=== PATIENT | female | born 1955 | race Caucasian/White ===

== ENCOUNTER 2023-11-27 21:40 | Inpatient (IN) | payer BC, SELFPAY ==
[2023-11-27] VITALS (34 sets, daily range): BP systolic 68–140; BP diastolic 35–97; BMI 31.9
[2023-11-27 19:13] LABS: % Basophils 0.2 % (0-2); % Immature Granulocytes 0.3 % (0-0.5); % Lymphocytes 2.6 % (20.5-51.1); % Monocytes 7.6 % (1.7-9.3); % Neutrophils 89.3 % (42.2-75.2); Absolute Immature Granulocytes 0.1 10^3/uL (0-0.05); Absolute Lymphocytes 0.5 10^3/uL (1.2-3.4); Absolute Monocytes 1.6 10^3/uL (0.1-0.6); Absolute Neutrophils 18.2 10^3/uL (1.4-6.5); Hematocrit 30.2 % (37.0-47.0); Hemoglobin 10.1 g/dL (12.0-16.0); Mean Corp Hgb Conc. 33.4 g/dL (33.0-37.0); Mean Corpuscular Hgb 31.3 pg (27.0-31.0); Mean Corpuscular Volume 93.5 fL (81.0-99.0); Mean Platelet Volume 10.1 fL (7.4-10.4); Nucleated Red Blood Cells % 0 %; Platelet Count 353 10^3/uL (130-400); Red Blood Cell Count 3.23 10^6/uL (4.20-5.40); Red Cell Dist. Width 12.8 % (11.5-14.5); White Blood Cell Count 20.4 10^3/uL (4.8-10.8)
--- NOTE | 2023-11-27 19:23 | ED.GENMED ---
History of Present Illness
General
Chief Complaint: Blood Pressure Problem
Source: patient and spouse
Time Seen by Provider: 11/27/23 19:03
History of Present Illness
History of Present Illness:
68-year-old female presents to the emergency room from [facility] where she underwent plastic surgery including liposuction, breast lift. Patient reportedly had 4 L of adipose tissue removed by liposuction. She received 4 L of
fluid per their routine one-to-one replacement protocol. Patient also received an additional liter normal saline. She remained hypotensive in recovery. Also noted to be hypothermic. Therefore transferred here to the hospital for further
resuscitation. Patient complaining of pain in the areas of surgery she also feels generally weak and shaky. She denies any chest pain, nausea, shortness of breath. surgery performed by Dr. Banegas
Phy Exam
Physical Exam
Physical Exam:
General: Awake, Alert, Oriented X3. Appears uncomfortable, pale somewhat jittery
Vitals: Hypotensive and hypothermic on arrival
Head: Atraumatic
Eyes: Pupils equal, EOMI
Throat: Airway intact, no exudates
Neck: Trachea midline
Chest: Compression dressing in the form of Bryant bandages noted on chest
Lungs: Clear and equal b/l
Heart: Regular rate, no murmurs
Abd: Compression dressing noted on abdomen. There are 2 surgical drains noted with serosanguineous fluid
Neuro: Nonfocal
Skin: Warm, dry, no rash
Extremities: pulses equal b/l, no edema
Course
Orders/Labs/Results
Orders:
Orders
11/27/23 Breakfast
Regular
At Your Request: Full Participation
11/27/23 19:05
CBC/With Diff [Complete Blood Count/With Diff] Urgent
Comprehensive Metabolic Panel Urgent
Direct Bilirubin Urgent
11/27/23 19:17
Lactated Ringers [Lr] 1,000 ml IV BOLUS
11/27/23 19:25
HYDROmorphone [Dilaudid] 0.5 mg IV NOW STA
11/27/23 19:40
Type+Screen Urgent
Ionized Calcium Urgent
11/27/23 20:12
PTT Urgent
Prothrombin Time Urgent
Is patient on Coumadin/Warfarin?: Unknown
11/27/23 20:19
Lactated Ringers [Lr] 1,000 ml IV BOLUS
11/27/23 20:27
NORepinephrine 4 MG/250 ML [Levophed] 4 mg in 250 ml IV NOW
Initial dose in mcg/min, then titrate:: 2
Titrate to keep:: MAP > 65 mmHg
Titrate by mcg/min:: 1-2 mcg/min
Frequency of titrations (minutes):: 5
Maximum dose in ICU in mcg/min:: 30
Maximum dose in IMU in mcg/min:: 8
Maximum dose in IVU in mcg/min:: 4
Begin to taper infusion when:: Remained at goal for 4hrs
Taper by mcg/min:: 1-2 mcg/min
Frequency of taper (minutes) if patient maintains goal:: 30
Taper to off?: Yes
If infusion off & no longer maintaining goal:: Contact Provider
11/27/23 20:38
Hemoglobin Urgent
11/27/23 20:48
Add On- LAB Urgent
Tests Added?: direct bilirubin
11/27/23 21:00
Dextrose 5%/Lactringers 1000ML [D5lr] 1,000 ml IV 80 mls/hr
11/27/23 21:17
Admit/Transfer Patient As Directed
Co-Sign Provider:
Level of Care: Inpatient admission
Assign to:: ICU
Physician / Group: Payton
Diagnosis: Hypovolemic Shock
Reason for Hospitalization: IVFs, Levophed
Expected length of stay greater than two midnights?: Yes
ELOS- Estimated Length of Stay in days: 3
I certify the patient meets the requirements for IP care: Yes
11/27/23 21:19
Code Status As Directed
Resuscitation Status: Full Code
11/27/23 21:21
ECG [Electrocardiogram (*1)] Urgent
Reason for Study: Other
Other Reason for Exam: Hypotension
11/27/23 21:26
Calcium Gluconate 2 gram/100mL [Calcium Gluconate] 2 gram in 100 ml IV ONCE
11/27/23 21:32
H&H Urgent
Lactic Acid Urgent
11/27/23 21:33
Troponin I Urgent
Blood Culture Q30M
WILLIAN Source: Blood/Venous
Specimen Description:
Blood Culture Q30M
WILLIAN Source: Blood/Venous
Specimen Description:
11/27/23 22:46
0.45% Sodium Chloride 1000 ml [0.45%NaCl] 1,000 ml IV 60 mls/hr
Acetaminophen [Tylenol] 650 mg PO Q4HPRN PRN
NORepinephrine 4 MG/250 ML [Levophed] 4 mg in 250 ml IV PER PROTOCOL
Currently infusing. Continue current dose and titrate:: Yes
Titrate to keep:: MAP > 65 mmHg
Titrate by mcg/min:: 1-2 mcg/min
Frequency of titrations (minutes):: 5
Maximum dose in ICU in mcg/min:: 30
Maximum dose in IMU in mcg/min:: 8
Maximum dose in IVU in mcg/min:: 4
Begin to taper infusion when:: Remained at goal for 4hrs
Taper by mcg/min:: 1-2 mcg/min
Frequency of taper (minutes) if patient maintains goal:: 30
Taper to off?: Yes
If infusion off & no longer maintaining goal:: Contact Provider
Oxycodone [Roxicodone] 5 mg PO Q4HPRN PRN
11/27/23 22:46
Director Of Radiology Consult Routine
Consulting Provider: Brooke Paredes
Was physician already notified: Yes
Activity As Directed
Activity Level: Bedrest
I&O [Intake/ Output] As Directed
Frequency: q12h
Pneumatic Compression Sleeves As Directed
Type: Knee high
Vital Signs As Directed
Frequency: Per unit guidelines
DX Deep Vein Thrombosis Video Routine
11/28/23 06:00
Complete Blood Count/No Diff IN AM
Comprehensive Metabolic Panel IN AM
Magnesium IN AM
11/28/23 08:00
Escitalopram Oxalate [Lexapro] 10 mg PO DAILY
Ferrous Sulfate [Feosol] 325 mg PO DAILY
11/28/23 18:00
Atorvastatin [Lipitor] 10 mg PO QPM
Abnormal Lab Results
11/27/23 11/27/23 11/27/23
19:05 19:40 20:12
WBC 20.4 H 10^3/uL
(4.8-10.8)
RBC 3.23 L 10^6/uL
(4.20-5.40)
Hgb 10.1 L g/dL
(12.0-16.0)
Hct 30.2 L %
(37.0-47.0)
MCH 31.3 H pg
(27.0-31.0)
Abs Immat Gran (auto) 0.1 H 10^3/uL
(0-0.05)
Absolute Neuts (auto) 18.2 H 10^3/uL
(1.4-6.5)
Absolute Lymphs (auto) 0.5 L 10^3/uL
(1.2-3.4)
Absolute Monos (auto) 1.6 H 10^3/uL
(0.1-0.6)
Neutrophils % 89.3 H %
(42.2-75.2)
Lymphocytes % 2.6 L %
(20.5-51.1)
PT 17.4 H Sec
(11.4-14.6)
Chloride 116 H mmol/L
(98-107)
Carbon Dioxide 15 L mmol/L
(22-30)
Creatinine 0.5 L mg/dL
(0.6-1.0)
Glucose 155 H mg/dl
(70-99)
Lactic Acid
Calcium 6.4 L* mg/dl
(8.4-10.2)
Ionized Calcium 0.98 L mMOL/L
(1.15-1.33)
Total Bilirubin 2.6 H mg/dl
(0.2-1.3)
Direct Bilirubin 0.5 H mg/dl
(0.0-0.4)
Total Protein 4.5 L g/dl
(6.3-8.2)
Albumin 2.7 L g/dl
(3.5-5.0)
11/27/23 11/27/23
20:38 21:32
WBC
RBC
Hgb 8.7 L g/dL 9.4 L g/dL
(12.0-16.0) (12.0-16.0)
Hct 25.5 L %
(37.0-47.0)
MCH
Abs Immat Gran (auto)
Absolute Neuts (auto)
Absolute Lymphs (auto)
Absolute Monos (auto)
Neutrophils %
Lymphocytes %
PT
Chloride
Carbon Dioxide
Creatinine
Glucose
Lactic Acid 4.1 H* mmol/L
(0.7-2.0)
Calcium
Ionized Calcium
Total Bilirubin
Direct Bilirubin
Total Protein
Albumin
11/27/23 21:32
11/27/23 19:05
Vital Signs
Initial and Last Documented VS:
Initial Vital Signs
Temp Pulse Resp BP Pulse Ox
96.2 F L 97 18 85/59 97
11/27/23 18:09 11/27/23 18:09 11/27/23 18:09 11/27/23 18:09 11/27/23 18:09
Last Documented Vital Signs
Temp Pulse Resp BP Pulse Ox
98.1 F 82 24 106/74 100
11/27/23 23:28 11/28/23 02:30 11/28/23 02:30 11/28/23 02:30 11/28/23 02:30
MDM/Problems Addressed
Differential Diagnosis Includes:
Hypovolemic shock, hemorrhagic shock, electrolyte abnormality
MDM/Problems Addressed:
Patient sent to the hospital from surgery center where she had liposuction and breast lift. Patient remained hypotensive and somewhat hypothermic despite their typical fluid resuscitation protocol. Because she was not responding to fluid she was
sent to the emergency room. Patient was given additional IV fluid in the form of lactated ringer. She received 1 L bolus. No significant improvement her blood pressure. Patient continues to feel cold, tremulous and has significant pain. Case
discussed with Dr. Paredes who is on-call for the intensivists. She recommends starting pressors at this point. Levophed started. Patient be admitted to the ICU.
*Pulse Oximetry
Patient hypoxic: no
*EKG
Interpreted by ED Provider?: Yes
Comparison EKG: no comparison EKG present
Heart Rate: 96
Rate: normal
Rhythm: sinus
Melissa: normal axis
Interval: normal interval
QRS Pattern: low voltage
Ischemia: no ischemia
*Platen Grinder Interpretation
Rate: tachycardiac
Interpretation: abnormal
Rhythm: sinus tachycardia
*Critical Care Note
Total Time (30-74mins, 75-104mins- exclusive of procedures): 40 min
comment:
Critical care statement: A total of 40 minutes of critical care time was provided for this patient. This includes management of unstable vital signs, evaluation of the patient at bedside, reviewing the patient's pertinent medical records, discussion
with consultants, review of old EKGs and review of pertinent medical records. This time with separate from time utilized to perform the aforementioned documented procedures
ED Attending Note
-
Portions of this chart may have been created with voice recognition software.� Occasional wrong word or��sound alike� substitutions may have occurred due to the inherent limitations of voice recognition software.
Discharge Plan
Departure
Patient Disposition: Admit
Date of Disposition: 11/27/23
Time of Disposition: 20:32
Admit to: ICU
Presentation/result/management discussed w/ accepting MD/DO: Hospitalist
Condition: Serious
Discharge Problem:
Hypovolemic shock
Interventions
Interventions:
*Risk Screen - Suicide Last Done: 11/27/23 23:43
*General Assessment Last Done: 11/27/23 18:29
*Neglect/Abuse Screening Last Done: 11/27/23 18:29
ED- Fall Risk Assessment Last Done: 11/27/23 18:33
*ED COVID-19 Vaccine History Last Done: 11/27/23 23:43
*Nursing Disposition Last Done: 11/27/23 22:55
ED- Cardiac Assessment Last Done: 11/27/23 18:33
ED- Neurological Assessment Last Done: 11/27/23 18:33
ED- Pulmonary Assessment Last Done: 11/27/23 18:33
Discharge Date and Time
Discharge Date/Time: 11/27/23 22:56
[2023-11-27 19:27] LABS: ALT (SGPT) 26 U/L (0-35); AST (SGOT) 27 U/L (14-36); Albumin 2.7 g/dl (3.5-5.0); Alkaline Phosphatase 44 U/L (38-126); Blood Urea Nitrogen 10 mg/dl (7-17); Calcium 6.4 mg/dl (8.4-10.2); Carbon Dioxide 15 mmol/L (22-30); Chloride 116 mmol/L (98-107); Estimated Creatinine Clearance 83 ml/min; Glucose 155 mg/dl (70-99); Potassium 3.8 mmol/L (3.5-5.1); Sodium 141 mmol/L (135-145); Total Bilirubin 2.6 mg/dl (0.2-1.3); Total Protein 4.5 g/dl (6.3-8.2); eGFR > 60.00
[2023-11-27] MEDS: LR 1000 IV ×2 (19:37→20:21)
[2023-11-27 19:59] LABS: Ionized Calcium 0.98 mMOL/L (1.15-1.33)
[2023-11-27 20:28] LABS: INR 1.42; PT 17.4 Sec (11.4-14.6)
[2023-11-27 20:29] LABS: APTT 24.8 Sec (23.4-35.0)
--- NOTE | 2023-11-27 20:41 | W.PN.UPDATE ---
Update Note
Progress Note Update
This update serves as addendum to H&P written by ANDREW Whyte
I saw and examined the patient.
The DOCUMENT CONTROL ASSOCIATE's note was reviewed and I agree with the note.
Comment:
Ms. Carmen Moser is a 68 yo woman with hx hyperlipidemia, HTN who was sent from [facility] for persistent hypotension post liposuction and breast lift. Patient had 4L of adipose tissue removed by liposuction. Patient received a
total of 5L fluid at center and remained hypotensive and hypothermic. Current main complaint is post-op pain. No chest pain or shortness of breath. She was in USOH pre-op, no fevers.
Triage VS: T 96.2, P 97, RR 18, BP 85/59, SpO2 97%
LABS: WBC 20.4, Hg 10.1, PLT 353, INR 1.42, Na 141, K+ 3.8, Cl 116, CO2 15 (AG =11), Cr 0.5, Glucose 155, Ca 6.4 (corrected = 7.4), ionized naldo 0.98
MAR: Dilaudid, LR bolus x 2, Levophed
On exam patient is pale appearing, conversant, appears in pain post procedure with movement. She has kal bandages across chest and abdomen; gauze with mild bloody oozing, LASHA drains x 2 with serosanguineous fluids, no LE swelling.
Post-op Hypotension/ Hypothermia
-patient is s/p liposuction and breast augmentation today
-etiology likely from effect of anesthesia/fluid shifts. no e/o infection but will obtain cultures; patient had no signs of infection pre-op. Although Hg dropped this is post 5-6L of IVF. Case discussed with patient's surgeon, Dr. Banegas.
Photos of wounds and LASHA drainage showed and per Dr. Banegas appears normal post-op and if there was a bleeding complication, this would be evident through significant LASHA drainage (emptying q 1 hour). Currently serosanguineous fluid ~ 30ml has not
yet been emptied which is expected
-admit to ICU
-IV Levophed
-obtain EKG and trend Troponins
-pain control, opiates when blood pressure allows
-Dr. Banegas's cell phone: [phone]
s/p Liposuction and breast augmentation
-continue post-op bandages
-patient has follow up appointment with surgeon on Saturday
Post-op Anemia, Acute Blood Loss Anemia + Dilution
-repeat Hg now
-no evidence of severe bleeding from LASHA drainage output
-blood consent obtained
-if Hg continues to drop greater than expected from output would obtain CT Angio
Non-Anion Gap Hyperchloremic Metabolic Acidosis
-likely from NS IVF
-change fluids to 1/2 NS
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
Hypocalcemia
-corrected calcium 7.4
-replete
SCD's
FULL CODE
Total Critical Care Time 45 minutes. I was immediately available to the patient and staff. I personally examined, reviewed labs, diagnostic images/reports, interpretations, treatment plans, discussed patient care with other providers and family
or caregivers (if patient is unable to make decisions), entered orders as appropriate and documented the medical record.
[2023-11-27 20:43] LABS: Hemoglobin 8.7 g/dL (12.0-16.0)
[2023-11-27] MEDS: LEVOPHED IV (20:56)
[2023-11-27] MEDS: D5LR 1000 IV (20:57)
[2023-11-27] MEDS: LEVOPHED 250 IV (21:13)
[2023-11-27 21:21] LABS: Direct Bilirubin 0.5 mg/dl (0.0-0.4)
--- NOTE | 2023-11-27 21:35 | HPS.HSE ---
Family Physician
-
Family Physician:
Chief Complaint
-
Hypotension
History of Present Illness
Patient is a 68 y/o female past medical history of hypertension who presents with persistent hypotension following multiple cosmetic surgeries today. Patient reports she recently lost over 100lbs. Today she underwent planned breast lift,
abdominoplasty and bilateral thigh liposuction at the ambulatory surgery center. Following the procedure she developed persistent hypotension despite 5L of NSS given at the surgery center. She was transferred from the surgery center to the
emergency department. While in the emergency department she received an addition 1L of LR.
Medical History
Past Medical History
Past Medical History: Reports Other
Additional Past Medical History:
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
Hyperlipidemia
Depression
Gilbert's Disease
Past Surgical History: Reports Other
Additional Past Surgical History:
Bilateral Breast Lift
Abdominoplasty
Bilateral Thigh Liposuction
Facelift
Upper Eyelid Lift
Social History
Tobacco: Non-smoker
Alcohol: Occasional
Family History
Family History: Not pertinent
Allergies / Home Medications
Allergies reflects when Allergies were last updated in [employer].
Home Medications with original date entered in [employer]
Allergy/Medication List:
Allergies
Allergy/AdvReac Type Severity Reaction Status Date / Time
No Known Allergies Allergy Verified 11/27/23 18:09
Home Medications
atorvastatin 10 mg tablet (Lipitor) 10 mg PO QPM 11/27/23
biotin 1 mg capsule 1 mg PO DAILY 11/27/23
calcium carbonate 500 mg PO DAILY 11/27/23
coenzyme Q10 100 mg capsule (Co Q-10) 100 mg PO DAILY 11/27/23
escitalopram oxalate 10 mg tablet (Lexapro) 10 mg PO DAILY 11/27/23
ferrous sulfate 325 mg (65 mg iron) tablet 325 mg PO DAILY 11/27/23
resveratrol 50 mg capsule 50 mg PO DAILY 11/27/23
semaglutide (weight loss) 2.4 mg/0.75 mL subcutaneous pen injector (Wegovy) 2.4 mg SC TREJO 11/27/23
valsartan 80 mg tablet 40 mg PO Q48H 11/27/23
Review of Systems
-
A 12 point ROS was completed and negative except as noted: Yes
Constitutional: Denies Fever or Chills
Respiratory: Denies Cough or Trouble Breathing
Cardiac: Denies Chest Pain or Palpitations
Physical Exam
Vital Signs
Vital Signs
Temp Pulse Resp BP Pulse Ox
97.4 F 88 22 82/64 96
11/27/23 19:09 11/27/23 21:15 11/27/23 21:15 11/27/23 21:15 11/27/23 21:15
Physical Exam
General: Comfortable and Conversant
HEENT: Anicteric and Other (Mucous membranes are dry)
Respiratory: Clear and Non Labored Respirations
Cardiac: S1/S2 and Regular Rhythm
Breast: Other (ELIER wraps and compression bra in place)
GI: Other (Abdomen with extensive dressings and [address] with noted dark pink drainage)
Genito-urinary: Gaitan
Musculoskeletal: No Clubbing, No Cyanosis, No Edema and Other (Bilateral thighs wrapped in compression wraps)
Skin: Warm and Dry
Neuro: Awake, Alert, Oriented and Nonfocal/grossly intact
Laboratory Results
-
11/27/23 19:05
Laboratory Results
PT 17.4 Sec (11.4-14.6) H 11/27/23 20:12
INR 1.42 11/27/23 20:12
APTT 24.8 Sec (23.4-35.0) 11/27/23 20:12
Total Bilirubin 2.6 mg/dl (0.2-1.3) H 11/27/23 19:05
AST 27 U/L (14-36) 11/27/23 19:05
ALT 26 U/L (0-35) 11/27/23 19:05
Alkaline Phosphatase 44 U/L (38-126) 11/27/23 19:05
Data Reviewed
-
Lab Data: Labs Reviewed by me
Impression/Plan
-
Hypovolemic Shock following Bilateral Breast Lift, Abdominoplasty, and Bilateral Thigh Liposuction with 4L of adipose tissue removed
-Start Levophed
-Continue slow IVFs
Acute Blood Loss Anemia, suspect component of dilution following large amount of IVFs
-Blood consent obtained by Dr. Cain
-Continue to trend Hgb
Hypocalcemia, likely related to large amount of IVFs given
-Replace with IV calcium
-Recheck calcium levels in AM
-If remains low consider further work-up
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
-Hold Diovan due to hypotension
Hyperlipidemia
-Continue Lipitor
Depression
-Continue Lexapro
DVT proph: SCDS
Code Status: Full Code
[2023-11-27 21:47] LABS: Hematocrit 25.5 % (37.0-47.0); Hemoglobin 9.4 g/dL (12.0-16.0)
[2023-11-27] MEDS: CALCIUM GLUCONATE 100 IV (21:50)
[2023-11-27 22:01] LABS: Lactic Acid 4.1 mmol/L (0.7-2.0)
[2023-11-27 22:10] LABS: Troponin I < 0.012 ng/ml
[2023-11-27] MEDS: 0.45%NACL 1000 IV (23:19)
[2023-11-27] MEDS: ROXICODONE 5 MG PO (23:41)
[2023-11-28] VITALS (28 sets, daily range): BP systolic 82–117; BP diastolic 33–85; PULSE 72–103; O2SAT 95–96; BMI 31.9
--- NOTE | 2023-11-28 | PTCARENOTE ---
rec'd patient from ER around 2300. assessment as documented. oriented x3. afebrile. SR on monitor. levo gtt infusing at 4mcg upon arrival to maintain MAP >65. on RA, denies SOB. lungs CTA. venegas in place, care provided, 400ml emptied upon arrival.
b/l abdominal LASHA drains noted with sanguinous drainage, charted in I&Os. abdominal binder in place. kal wraps to breasts and thighs. LASHA drain sites with moderate amt of drainage on sheet underneath pt. plastic surgeon notified and updated on pt
condition, told this RN to reinforce dressings overnight.
0000- IVF initiated, levo gtt titrated off per MAP goal. PRN oxy given for pain 7/10 in abdomen. all pt questions answered at this time. call hernández within reach, care ongoing.
[2023-11-28] MEDS: ROXICODONE 5 MG PO ×2 (04:01→08:14)
[2023-11-28] MEDS: ZOFRAN 4 MG IV (04:01)
[2023-11-28 04:02] LABS: Hematocrit 27.2 % (37.0-47.0); Hemoglobin 9.9 g/dL (12.0-16.0); Mean Corp Hgb Conc. 36.4 g/dL (33.0-37.0); Mean Corpuscular Hgb 31.8 pg (27.0-31.0); Mean Corpuscular Volume 87.5 fL (81.0-99.0); Mean Platelet Volume 9.6 fL (7.4-10.4); Platelet Count 315 10^3/uL (130-400); Red Blood Cell Count 3.11 10^6/uL (4.20-5.40); Red Cell Dist. Width 12.9 % (11.5-14.5); White Blood Cell Count 16.3 10^3/uL (4.8-10.8)
[2023-11-28 04:28] LABS: Lactic Acid 3.3 mmol/L (0.7-2.0); Troponin I < 0.012 ng/ml
[2023-11-28 04:30] LABS: ALT (SGPT) 27 U/L (0-35); AST (SGOT) 31 U/L (14-36); Albumin 2.8 g/dl (3.5-5.0); Alkaline Phosphatase 39 U/L (38-126); Blood Urea Nitrogen 12 mg/dl (7-17); Calcium 7.1 mg/dl (8.4-10.2); Carbon Dioxide 18 mmol/L (22-30); Chloride 113 mmol/L (98-107); Estimated Creatinine Clearance 71 ml/min; Glucose 141 mg/dl (70-99); Magnesium 1.5 mg/dl (1.6-2.3); Potassium 4.2 mmol/L (3.5-5.1); Sodium 139 mmol/L (135-145); Total Bilirubin 2.7 mg/dl (0.2-1.3); Total Protein 4.7 g/dl (6.3-8.2); eGFR > 60.00
[2023-11-28] MEDS: MAGNESIUM SULFATE 50 IV (05:19)
[2023-11-28] MEDS: CALCIUM GLUCONATE 100 IV (05:19)
--- NOTE | 2023-11-28 05:30 | PTCARENOTE ---
AM labs sent. pain mgmt provided with PRN meds overnight. zofran given this AM for nausea with turning in bed. repeat Hgb 9.9, LA 3.3. call hernández within reach, care ongoing.
[2023-11-28] MEDS: TYLENOL 650 MG PO ×2 (05:45→17:02)
--- NOTE | 2023-11-28 07:09 | CON.INTV ---
Consultation
Consultation Request
Date/Time Consultation Requested: 11/28/23
Date/Time Consultation Performed: 11/28/23
Performing Provider: Lena
Reason for Consultation: ICU
Medical History
-
History of Present Illness:
Patient is a 68 year old female past medical history of hypertension who presents with refractory hypotension following elective breast lift, abdominoplasty and bilateral thigh liposuction at the ambulatory surgery center 11/27/23. Following the
procedure she developed persistent hypotension and given 5L of NSS given at the surgery center. She was transferred from the surgery center to the emergency department. While in the emergency department she received an addition 1L of LR. She had
lost 100lbs prior to her procedure, intentionally.
She is admitted to ICU for potential pressor requirements.
Past Medical History
Past Medical History: Other (see list below)
Past Surgical History: Other
Social History
Tobacco: Non-smoker
Alcohol: None
Drug: None
Allergies / Home Medications
Allergies
Allergy/AdvReac Type Severity Reaction Status Date / Time
No Known Allergies Allergy Verified 11/27/23 18:09
Home Medications
�Medication �Instructions �Recorded �Confirmed �Last Taken �Type
atorvastatin 10 mg tablet (Lipitor) 10 mg PO QPM 11/27/23 11/27/23 11/26/23 History
biotin 1 mg capsule 1 mg PO DAILY 11/27/23 11/27/23 Unknown History
calcium carbonate 500 mg PO DAILY 11/27/23 11/27/23 Unknown History
coenzyme Q10 100 mg capsule (Co 100 mg PO DAILY 11/27/23 11/27/23 Unknown History
Q-10)
escitalopram oxalate 10 mg tablet 10 mg PO DAILY 11/27/23 11/27/23 11/27/23 History
(Lexapro)
ferrous sulfate 325 mg (65 mg 325 mg PO DAILY 11/27/23 11/27/23 Unknown History
iron) tablet
resveratrol 50 mg capsule 50 mg PO DAILY 11/27/23 11/27/23 Unknown History
semaglutide (weight loss) 2.4 2.4 mg SC TREJO 11/27/23 11/27/23 11/10/23 History
mg/0.75 mL subcutaneous pen
injector (Wegovy)
valsartan 80 mg tablet 40 mg PO Q48H 11/27/23 11/27/23 11/26/23 History
Review of Systems
-
History Source: Patient
All other systems: Negative unless noted
Vitals / Labs / Diagnostic Testing
Vital Signs
Temp Pulse Resp BP Pulse Ox
97.6 F 90 24 117/81 97
11/28/23 03:53 11/28/23 06:00 11/28/23 06:00 11/28/23 06:00 11/28/23 06:00
Lab Data
11/28/23 03:49
11/28/23 03:49
Laboratory Results
11/27/23 11/27/23
19:40 20:12
PT Cancelled 17.4 H
INR Cancelled 1.42
APTT Cancelled 24.8
Diagnostic Testing:
Physical Exam
-
HEENT: Normocephalic, Anicteric and Moist Mucous Membranes
Cardiovascular: S1/S2 and Regular Rhythm
Respiratory: Clear
GI: Non Distended, Tender and Other (dressings in place)
Neurology: Awake, Alert, Oriented, AO x 3 and No Motor Deficits
Skin: Warm, Dry and Good Color
General: Comfortable and Other (NAD)
Assessment
-
Patient is a 68 year old female past medical history of hypertension who presents with refractory hypotension following elective breast lift, abdominoplasty and bilateral thigh liposuction at the ambulatory surgery center 11/27/23. Following the
procedure she developed persistent hypotension and given 5L of NSS given at the surgery center. She was transferred from the surgery center to the emergency department. While in the emergency department she received an addition 1L of LR. She is
admitted to ICU for potential pressor requirements.
Hypovolemic shock on pressors, refractory to IVFs
Elective cosmetic surgery including Bilateral Breast Lift/Abdominoplasty/Bilateral Thigh Liposuction (4L extracted) 11/27/23
Hyperchloremic metabolic acidosis, likely iatrogenic
Leukocytosis, likely postop, rule out infection
Hypocalcemia
Hyperglycemia
Lactic acidosis
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
Hyperlipidemia
Depression
Gilbert's Disease
Facelift
Upper Eyelid Lift
Plan
No current signs of metabolic encephalopathy or MS changes/following commands
Denies pain at this time.
Pain/sedation: PRN
RASS goals: 0
Hemodynamically stable, not requiring pressors.
Levophed on overnight but has since been weaned to off
Cardiac history reviewed--HTN
No prior ECHO for review
Resume home meds when BP more stable
Oxygen needs: stable on RA
Prior history of lung disease: none
Supplemental O2 as indicated to maintain sats > 89%
CXR/CT reviewed indicating NAD
Can give lasix if needed, but has good UO
Diet advancement
Restaurant Crew recommendations
Aspiration precautions, HOB > 30 degrees
Speech therapy eval can be considered if at elevated risk
GI prophylaxis if indicated
Creat at baseline, no history of renal disease
Void trials
Follow urine output, critical I/Os
Replete electrolytes as needed
No signs/symptoms suspicious for infectious etiology at this time
Observe off antibiotics for now
Cultures sent/pending
Blood
Follow fever trend, WBC count/leukocytosis may be postop
Lactate elevated on admission, continue to trend until <2
CBC stable, no signs of bleeding or coagulopathy.
DVT prophylaxis as assessed based on risk, including mechanical SCDs
Can transfuse if indicated for Hb <7, plt < 10
INR WNL
No prior h/o diabetes or thyroid disease
Monitor accuchecks PRN/SS coverage if needed
Can likely transfer to floors at this time, we will sign off upon transfer.
Diagnostic Data
Chest X-Ray: 11/27/23- Focal parenchymal opacity within the left lower lung, suspicious for pneumonia, although atelectasis could have a similar appearance.
Thin linear densities within the right lower lung, appearance most suggestive of linear atelectasis or scarring.
CT US 11/28/23- No sonographic evidence for left pleural effusion.
Echo: n/a
PFT's:
Reports and relevant images were personally reviewed.
-----
Critical care time 50 mins -- this includes review of history, physical exam, medications, hemodynamic/ventilator parameters, laboratory data, imaging and discussion with house staff, pharmacy, respiratory therapy, press leader, and nursing.
[2023-11-28] MEDS: LEXAPRO 10 MG PO (07:28)
[2023-11-28] MEDS: FEOSOL 325 MG PO (07:28)
--- NOTE | 2023-11-28 07:41 | W.PN.HOSP.TC ---
Today's Communication/Plan
-
see A/P
Assessment / Plan
Assessment / Plan
HPI: 68 y/o female past medical history of hypertension who presented with persistent hypotension following multiple cosmetic surgeries on DOA. Patient reports she recently lost over 100lbs. On DOA, she underwent planned breast lift, abdominoplasty
and bilateral thigh liposuction at the ambulatory surgery center. Following the procedures, she developed persistent hypotension despite 5L of NSS given at the surgery center. She was transferred from the surgery center to the emergency department.
While in the emergency department she received an addition 1L of LR.
A/P:
# Hypovolemic Shock, possibly due to fluid shift/anesthesia S/E, following Bilateral Breast Lift, Abdominoplasty, and Bilateral Thigh Liposuction with 4L of adipose tissue removed
# lactic acidosis POA
Off Levophed
Observe off additional IVF
Follow blood Cx
# Acute Blood Loss Anemia, suspect component of dilution following large amount of IVFs
Blood consent obtained by Dr. Cain
Continue to trend Hgb
# Hypocalcemia, likely related to large amount of IVFs given
Replaced with IV calcium
Cont SPECIAL DELIVERY WORKER PO calcium carbonate
Cont to monitor Ca level
# Left pleural effusion
follow formal CXR report
IR CS for thoracentesis
Check procal to r/o CAP and consider Abx if elevated (pt has no cough, resp symptom etc.)
# Essential Hypertension
Hold Diovan due to hypotension
# Hyperlipidemia
Continue Lipitor
# Depression
Continue Lexapro
DVT proph: SCDS
Code Status: Full Code
DW RN
Anticipated Discharge: Within 24 hours
Subjective/Interval History
-
Date of Service: November 28, 2023
Objective Data
-
Labs:
Laboratory Results
11/27/23 11/27/23 11/27/23
19:40 20:12 20:38
WBC
Hgb 8.7 L
Hct
Plt Count
PT Cancelled 17.4 H
INR Cancelled 1.42
APTT Cancelled 24.8
Sodium
Potassium
Chloride
Carbon Dioxide
BUN
Creatinine
Glucose
Calcium
Total Bilirubin
AST
ALT
Alkaline Phosphatase
11/27/23 11/28/23
21:32 03:49
WBC 16.3 H
Hgb 9.4 L 9.9 L
Hct 25.5 L 27.2 L
Plt Count 315
PT
INR
APTT
Sodium 139
Potassium 4.2
Chloride 113 H
Carbon Dioxide 18 L
BUN 12
Creatinine 0.7
Glucose 141 H
Calcium 7.1 L
Total Bilirubin 2.7 H
AST 31
ALT 27
Alkaline Phosphatase 39
Vital Signs:
Vital Signs
Temp Pulse Resp BP Pulse Ox
36.8 C 90 24 117/81 97
11/28/23 07:36 11/28/23 06:00 11/28/23 06:00 11/28/23 06:00 11/28/23 06:00
I&O
11/27/23 11/28/23 11/29/23
06:59 06:59 06:59
Intake Total 1440 / 1440
Output Total 835 / 835
Balance 605 / 605
Review of Systems
-
All other systems: Reviewed and negative
Respiratory: Denies Cough or Trouble Breathing
Physical Exam
-
General: Well Developed, Well Nourished, No Apparent Distress, Comfortable and Conversant; Negative Respiratory Distress
HEENT: Normocephalic, Atraumatic, Nose Appears Normal and Ears Appear Normal; Negative Oxygen
Respiratory: Clear to Auscultation and Non Labored Respirations; Negative Accessory Resp Muscle Use
Cardiac: Regular Rhythm and S1/S2
GI: Soft, Nontender, Nondistended and Normal Bowel Sounds
Skin: Warm and Dry
Neuro: Awake, Alert, Oriented and AO x 3
Psych: Calm and Intact Judgement/Insight
Data Reviewed
-
Diagnostic Radiology: Image personally visualized and interpreted
Labs: Labs Reviewed by me
--- NOTE | 2023-11-28 08:09 | PTCARENOTE ---
rec'd patient at 0700. assessment as documented. oriented x3. afebrile. SR on monitor. levo off, maintain MAP >65. on RA, denies SOB. lungs CTA. venegas in place, care provided. b/l abdominal LASHA drains noted with serosanguineous drainage, charted in
I&Os. abdominal binder in place. kal wraps to breasts and thighs. reinforced dressings overnight remain in place. Plan to ambulate discussed.
[2023-11-28] MEDS: OSCAL CAL 500 500 MG PO (08:31)
[2023-11-28 09:10] LABS: LDH 159 U/L (120-246); Total Protein 4.5 g/dl (6.3-8.2)
--- NOTE | 2023-11-28 09:25 | PTCARENOTE ---
Premedicated and assisted OOB to chair wit asst X2.
--- NOTE | 2023-11-28 13:24 | CM ---
CM following re: discharge planning.
Reviewed pt's chart, met with pt.
Pt is a 68 year old female, admitted with primary dx of Hypovolemic Shock.
Pt reports she lives alone in a 2SH, 5 steps to enter, has no children, has supportive brother who will transport her home at discharge. 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 Pt stated she has supportive neighbor and pt feels she
will need VN services to help her with recovery after surgery. Pt preferred [facility].
A referral to [facility] made. A referral has been denied by [facility] due to staff shortage.
Pt asked to refer to any VN agency in [facility]. CM made a referral to numerous VN agencies.
PCP: Mariana Borjas
Pharmacy: [facility]
D/C plan: home with preferred/accepted VN and family support. Brother to transport at discharge.
CM will follow with discharge plan updates as hospitalization progresses.
--- NOTE | 2023-11-28 14:19 | PTCARENOTE ---
Gaitan removed per protocol.
[2023-11-28 14:50] LABS: Procalcitonin 0.54 ng/ml (0.0-0.25)
[2023-11-28] MEDS: LIPITOR 10 MG PO (17:02)
--- NOTE | 2023-11-28 20:00 | PTCARENOTE ---
Addendum entered by Marine Garcia RN 11/28/23 20:52:
pt placed on 2 [facility] hospital bed with no issues, all belongings with pt, denies chest pain and SOB.
Original Note:
report given to 2 [facility] RN.
--- NOTE | 2023-11-28 21:00 | PTCARENOTE ---
Pt received to room 2108 from ICU via bed. L LASHA noted to be full-had been emptied just prior to transport. LASHA emptied and L lateral abdominal dsg with sanguinous drainage. ABDs used to reinforce dressing. BP noted to be high 90s systolic. House
TEA BLENDER notified and up to see pt. IV fluids restarted. Will continue to monitor.
[2023-11-28] MEDS: 0.45%NACL 1000 IV (23:00)
[2023-11-29] VITALS (9 sets, daily range): BP systolic 101–138; BP diastolic 55–86; PULSE 100–142; O2SAT 97
--- NOTE | 2023-11-29 01:00 | PTCARENOTE ---
LASHA drainage slowed down. Reinforced dsgs remain dry and intact. Pt OOB with assist of 2 to void.
[2023-11-29 05:54] LABS: % Basophils 0.3 % (0-2); % Eosinophils 0.2 % (0-6); % Immature Granulocytes 0.5 % (0-0.5); % Lymphocytes 11.4 % (20.5-51.1); % Monocytes 11.4 % (1.7-9.3); % Neutrophils 76.2 % (42.2-75.2); Absolute Basophils 0.1 10^3/uL (0-0.2); Absolute Immature Granulocytes 0.1 10^3/uL (0-0.05); Absolute Lymphocytes 2.2 10^3/uL (1.2-3.4); Absolute Monocytes 2.2 10^3/uL (0.1-0.6); Absolute Neutrophils 14.9 10^3/uL (1.4-6.5); Mean Corp Hgb Conc. 37.5 g/dL (33.0-37.0); Mean Corpuscular Hgb 31.6 pg (27.0-31.0); Mean Corpuscular Volume 84.2 fL (81.0-99.0); Mean Platelet Volume 10.1 fL (7.4-10.4); Nucleated Red Blood Cells % 0 %; Platelet Count 284 10^3/uL (130-400); Red Blood Cell Count 2.85 10^6/uL (4.20-5.40); Red Cell Dist. Width 12.4 % (11.5-14.5); White Blood Cell Count 19.5 10^3/uL (4.8-10.8)
[2023-11-29 06:18] LABS: Lactic Acid 1.4 mmol/L (0.7-2.0)
[2023-11-29 06:22] LABS: Blood Urea Nitrogen 19 mg/dl (7-17); Calcium 8.2 mg/dl (8.4-10.2); Carbon Dioxide 16 mmol/L (22-30); Chloride 107 mmol/L (98-107); Estimated Creatinine Clearance 62 ml/min; Glucose 105 mg/dl (70-99); Magnesium 2.2 mg/dl (1.6-2.3); Sodium 130 mmol/L (135-145); eGFR > 60.00
[2023-11-29] MEDS: NSS 1000 IV (08:28)
[2023-11-29] MEDS: STERILE WATER FOR INJECTION 10 ML IV (08:29)
[2023-11-29] MEDS: FEOSOL 325 MG PO (08:29)
[2023-11-29] MEDS: LEXAPRO 10 MG PO (08:29)
[2023-11-29] MEDS: ROCEPHIN 1000 MG IV (08:29)
[2023-11-29] MEDS: OSCAL CAL 500 500 MG PO (08:29)
[2023-11-29] MEDS: VIBRAMYCIN 100 MG PO ×2 (08:29→20:13)
--- NOTE | 2023-11-29 10:27 | W.PN.HOSP.TC ---
Today's Communication/Plan
-
see AP
Assessment / Plan
Assessment / Plan
HPI: 68 y/o female past medical history of hypertension who presented with persistent hypotension following multiple cosmetic surgeries on DOA. Patient reports she recently lost over 100lbs. On DOA, she underwent planned breast lift, abdominoplasty
and bilateral thigh liposuction at the ambulatory surgery center. Following the procedures, she developed persistent hypotension despite 5L of NSS given at the surgery center. She was transferred from the surgery center to the emergency department.
While in the emergency department she received an addition 1L of LR.
A/P:
# Hypovolemic Shock, possibly due to fluid shift/anesthesia S/E, following Bilateral Breast Lift, Abdominoplasty, and Bilateral Thigh Liposuction with 4L of adipose tissue removed
# lactic acidosis POA , resolved
Off Levophed
Cont IVF, BP stable
blood Cx negative
# Acute Blood Loss Anemia, suspect component of dilution following large amount of IVFs
Blood consent obtained by Dr. Cain
Continue to trend Hgb, stable at 9.0 today
# Hypocalcemia, likely related to large amount of IVFs given
Replaced with IV calcium
Cont CENTER MACHINE OPERATOR PO calcium carbonate
Ca level improved to 8.2 today
# Left lung opacity
CXR noted Focal parenchymal opacity within the left lower lung, suspicious for pneumonia, although atelectasis could have a similar appearance.
Procal elevated at 0.54
Check MRSA screen
Started empiric Ceftriaxone/doxycycline
# Essential Hypertension
Hold Diovan due to hypotension
# Hyperlipidemia
Continue Lipitor
# Depression
Continue Lexapro
DVT proph: SCDS
Code Status: Full Code
DW RN
Anticipated Discharge: Within 24 hours
Subjective/Interval History
-
Date of Service: November 29, 2023
Objective Data
-
Labs:
Laboratory Results
11/29/23
05:03
WBC 19.5 H
Hgb 9.0 L
Hct 24.0 L
Plt Count 284
Sodium 130 L D
Potassium 4.0
Chloride 107
Carbon Dioxide 16 L
BUN 19 H
Creatinine 0.8
Glucose 105 H
Calcium 8.2 L
Vital Signs:
Vital Signs
Temp Pulse Resp BP Pulse Ox
36.6 C 94 17 138/71 96
11/29/23 08:00 11/29/23 08:00 11/29/23 08:00 11/29/23 08:00 11/29/23 08:00
I&O
11/28/23 11/29/23 11/30/23
06:59 06:59 06:59
Intake Total 1440 / 1960 2520 / 2520
Output Total 835 / 835 1103 / 1103 60 / 60
Balance 605 / 1125 1417 / 1417 -60 / -60
Review of Systems
-
All other systems: Reviewed and negative
Respiratory: Denies Cough or Trouble Breathing
Physical Exam
-
General: Well Developed, Well Nourished, No Apparent Distress, Comfortable and Conversant; Negative Respiratory Distress
HEENT: Normocephalic, Atraumatic, Nose Appears Normal and Ears Appear Normal; Negative Oxygen
Respiratory: Clear to Auscultation and Non Labored Respirations; Negative Accessory Resp Muscle Use
Cardiac: Regular Rhythm and S1/S2
GI: Soft, Nontender, Nondistended and Normal Bowel Sounds
Skin: Warm and Dry
Neuro: Awake, Alert, Oriented and AO x 3
Psych: Calm and Intact Judgement/Insight
Data Reviewed
-
Diagnostic Radiology: Image personally visualized and interpreted
Labs: Labs Reviewed by me
[2023-11-29] MEDS: LIPITOR 10 MG PO (17:35)
[2023-11-29] MEDS: TYLENOL 650 MG PO (20:13)
[2023-11-29] MEDS: ROXICODONE 5 MG PO (23:40)
[2023-11-30] VITALS (7 sets, daily range): BP systolic 107–145; BP diastolic 64–71; PULSE 98; O2SAT 95
[2023-11-30 06:36] LABS: Lactic Acid 0.9 mmol/L (0.7-2.0)
[2023-11-30 06:37] LABS: Blood Urea Nitrogen 13 mg/dl (7-17); Calcium 8.6 mg/dl (8.4-10.2); Carbon Dioxide 20 mmol/L (22-30); Chloride 110 mmol/L (98-107); Estimated Creatinine Clearance 71 ml/min; Glucose 96 mg/dl (70-99); Potassium 3.9 mmol/L (3.5-5.1); Sodium 135 mmol/L (135-145); eGFR > 60.00
[2023-11-30 06:39] LABS: % Basophils 0.1 % (0-2); % Eosinophils 0.1 % (0-6); % Immature Granulocytes 0.7 % (0-0.5); % Lymphocytes 12.1 % (20.5-51.1); % Monocytes 9.3 % (1.7-9.3); % Neutrophils 77.7 % (42.2-75.2); Absolute Immature Granulocytes 0.1 10^3/uL (0-0.05); Absolute Monocytes 1.5 10^3/uL (0.1-0.6); Absolute Neutrophils 12.5 10^3/uL (1.4-6.5); Hematocrit 21.3 % (37.0-47.0); Hemoglobin 7.9 g/dL (12.0-16.0); Mean Corp Hgb Conc. 37.1 g/dL (33.0-37.0); Mean Corpuscular Hgb 31.6 pg (27.0-31.0); Mean Corpuscular Volume 85.2 fL (81.0-99.0); Nucleated Red Blood Cells % 0 %; Platelet Count 219 10^3/uL (130-400); Red Cell Dist. Width 12.1 % (11.5-14.5); White Blood Cell Count 16.1 10^3/uL (4.8-10.8)
[2023-11-30] MEDS: OSCAL CAL 500 500 MG PO (08:16)
[2023-11-30] MEDS: FEOSOL 325 MG PO (08:19)
[2023-11-30] MEDS: VIBRAMYCIN 100 MG PO ×2 (08:19→20:11)
[2023-11-30] MEDS: LEXAPRO 10 MG PO (08:20)
[2023-11-30] MEDS: ROCEPHIN 1000 MG IV (08:20)
[2023-11-30] MEDS: STERILE WATER FOR INJECTION 10 ML IV (08:21)
[2023-11-30] MEDS: ROXICODONE 5 MG PO ×3 (08:32→22:35)
--- NOTE | 2023-11-30 09:40 | W.PN.HOSP.TC ---
Today's Communication/Plan
-
see A/P
Pt states that she is unable to stand, although cleared by PT for HH. Will ask PT to reeval pt today. Consider SNF as another option.
Assessment / Plan
Assessment / Plan
HPI: 68 y/o female past medical history of hypertension who presented with persistent hypotension following multiple cosmetic surgeries on DOA. Patient reports she recently lost over 100lbs. On DOA, she underwent planned breast lift, abdominoplasty
and bilateral thigh liposuction at the ambulatory surgery center. Following the procedures, she developed persistent hypotension despite 5L of NSS given at the surgery center. She was transferred from the surgery center to the emergency department.
While in the emergency department she received an addition 1L of LR.
A/P:
# Hypovolemic Shock, possibly due to fluid shift/anesthesia S/E, following Bilateral Breast Lift, Abdominoplasty, and Bilateral Thigh Liposuction with 4L of adipose tissue removed
# lactic acidosis POA , resolved
Off Levophed
Off IVF, BP stable
blood Cx negative
# Acute Blood Loss Anemia, suspect component of dilution following large amount of IVFs
Blood consent obtained by Dr. Cain
Continue to trend Hgb, today at 7.9
# Hypocalcemia, likely related to large amount of IVFs given
Replaced with IV calcium
Cont ELECTRON BEAM WELDER SETTER PO calcium carbonate
Ca level improved to 8.6 today
# Left lung opacity
CXR noted Focal parenchymal opacity within the left lower lung, suspicious for pneumonia, although atelectasis could have a similar appearance.
Procal elevated at 0.54
Check MRSA screen
Started empiric Ceftriaxone/doxycycline
# Essential Hypertension
ELECTRON BEAM WELDER SETTER Diovan on hold
# Hyperlipidemia
Continue Lipitor
# Depression
Continue Lexapro
DVT proph: SCDS
Code Status: Full Code
PT OT recc HH
DW CM
Pt states that she is unable to stand, although cleared by PT for HH. Will ask PT to reeval pt today. Consider SNF as another option.
Anticipated Discharge: Within 24 hours
Subjective/Interval History
-
Date of Service: November 30, 2023
Objective Data
-
Labs:
Laboratory Results
11/30/23
05:45
WBC 16.1 H
Hgb 7.9 L
Hct 21.3 L
Plt Count 219 D
Sodium 135
Potassium 3.9
Chloride 110 H
Carbon Dioxide 20 L
BUN 13
Creatinine 0.7
Glucose 96
Calcium 8.6
Vital Signs:
Vital Signs
Temp Pulse Resp BP Pulse Ox
36.4 C 87 14 119/71 96
11/30/23 07:45 11/30/23 07:45 11/30/23 07:45 11/30/23 07:45 11/30/23 08:51
I&O
11/29/23 11/30/23 12/01/23
06:59 06:59 06:59
Intake Total 2520 / 2520
Output Total 1103 / 1103 810 / 810
Balance 1417 / 1417 -810 / -810
Review of Systems
-
All other systems: Reviewed and negative
Respiratory: Denies Cough or Trouble Breathing
Physical Exam
-
General: Well Developed, Well Nourished, No Apparent Distress, Comfortable and Conversant; Negative Respiratory Distress
HEENT: Normocephalic, Atraumatic, Nose Appears Normal and Ears Appear Normal; Negative Oxygen
Respiratory: Clear to Auscultation and Non Labored Respirations; Negative Accessory Resp Muscle Use
Cardiac: Regular Rhythm and S1/S2
GI: Soft, Nontender, Nondistended and Normal Bowel Sounds
Skin: Warm and Dry
Neuro: Awake, Alert, Oriented and AO x 3
Psych: Calm and Intact Judgement/Insight
Data Reviewed
-
Diagnostic Radiology: Image personally visualized and interpreted
Labs: Labs Reviewed by me
--- NOTE | 2023-11-30 10:17 | PTOTSP ---
Speech Pathology
Complaints: Patient reported complaints regarding appearing globus sensation (tightness, belching, pressure, discomfort) with PO with fear of choking due to the discomfort.
Swallowing Function: VETERINARY VIROLOGIST observed patient with several sips of thin liquids and bites of regular consistency soilds in which patient appeared to tolerate as she did not exhibit any overt clinical s/sx of aspiration. Prolonged mastication noted but
adequate manipaulation. Patient did demonstrate intermittent belching during session which is likely not related to swallowing function but could be correlated to GI? Consider consult. Patient reports poor oral intake since 11/26; consider nutrition
consult and Ensure.
Given patient's complaints, consider GI consult, nutrition consult, Ensure, and possible VSE to quantify her complaints, r/o aspiration and ensure adequate nutrition. Of note, patient reports loosing ~100lbs naturally (planned); followed by ample
surgeries for skin removal and lifts.
Recommendations:
1) Continuation of current diet (regular consistency solids and thin liquids) with the direction of ordering foods that are of preferred texture due to discomfort
2) Aspiration precautions
3) Medications as tolerated
4) Consideration of VSE to r/o aspiration or dysphagia
5) Consider nutrition consult for intake
6) Consider Ensure due to intake complaints
7) Consider GI given complaints
Plan: VETERINARY VIROLOGIST will continue to follow; pending hospitalization.
--- NOTE | 2023-11-30 11:40 | PTCARENOTE ---
pt e-sudhakar by speech today, Add Ensure, continues to feel discomfort with swallowing, unsure ETT pressure from binder surgery etc.
1140: pt experience abdominal pain and difficulty breathing, mild increased RR (anxiety) no change to lung assessment Clear but shallow hard for her to deep breath, 96% RA VSS. Stating she ate breakfast eggs, [place], is a at a 90degree angle may
be increased pressure, PT arrived, had pt stand and walk outside room to chair and back to bed with RW, she was slow steady, in discomfort but no c/o SOB MANN but HR in sinus tach to 147 with occ PVC's, post walk still feels that discomfort in
abdomen that is concerning her she feels it is making her breath more rapid. will notify Dr. Cuevas with concerns
--- NOTE | 2023-11-30 12:28 | PTCARENOTE ---
TT from Dr. Cuevas recommends to continue monitor outpatient, Not an urgent matter and if symptom persist after a week and the abdominal binding is removed, then can see GI.
--- NOTE | 2023-11-30 13:19 | CM ---
Patient seen at bedside, with physician. Patient asking about going to SNF in [facility]. PT now recommending SNF. CM will send referrals and patient will need auth for placement prior to going to SNF. CM will continue to follow for discharge
planning needs.
Plan;changed to SNF; will send referrals awaiting response
[2023-11-30] MEDS: LIPITOR 10 MG PO (16:41)
[2023-11-30] MEDS: TYLENOL 650 MG PO (20:17)
[2023-12-01] VITALS (7 sets, daily range): BP systolic 103–126; BP diastolic 52–68
--- NOTE | 2023-12-01 00:26 | PTCARENOTE ---
Pt able to ambulate to bathroom with nursing assistance. RN assessed skin and dressings while pt was standing. Skin ecchymotic in thighs and abd areas where dressings are not present. bl lower abdominal dressings with mod old drainage dried under
Tegaderm show not active drainage. b/l LASHA patent, dressing dry. Left thigh dressing with old drainage with reinforced tape from previous shifts. Compression breast/abdominal bra in place. B/L kal wraps to thighs in place with no active drainage
noted. Pt reports she is concerned about the compression to her b/l thighs and does not know if she should be wearing different compression garment. She reported her brother did take something home today. She also has concerns of lower abdominal
dressings with the old drainage. Rn reviewed her discharge instruction from and that dressing were to remain in place til post op visit and toll call if there was excessive drainage or foul smelling. Pt was encourage to call the Dr in the morning
who performed surgery and insist for further instructions and possible follow from the surgeon. Pt was provided the number that was on her discharge instructions. Pt VSS and has been taking her pain medications as prescribed. She has maintained the
proper sleeping instructions while in bed.
[2023-12-01] MEDS: TYLENOL 650 MG PO ×4 (03:22→23:32)
[2023-12-01] MEDS: ROXICODONE 5 MG PO ×3 (05:21→22:23)
[2023-12-01 06:22] LABS: Blood Urea Nitrogen 15 mg/dl (7-17); Calcium 8.7 mg/dl (8.4-10.2); Carbon Dioxide 22 mmol/L (22-30); Chloride 107 mmol/L (98-107); Estimated Creatinine Clearance 83 ml/min; Glucose 98 mg/dl (70-99); Potassium 3.8 mmol/L (3.5-5.1); Sodium 133 mmol/L (135-145); eGFR > 60.00
[2023-12-01 06:27] LABS: % Basophils 0.3 % (0-2); % Eosinophils 1.7 % (0-6); % Immature Granulocytes 1.1 % (0-0.5); % Lymphocytes 18.7 % (20.5-51.1); % Neutrophils 67.2 % (42.2-75.2); Absolute Eosinophils 0.3 10^3/uL (0-0.7); Absolute Immature Granulocytes 0.2 10^3/uL (0-0.05); Absolute Lymphocytes 2.9 10^3/uL (1.2-3.4); Absolute Monocytes 1.7 10^3/uL (0.1-0.6); Absolute Neutrophils 10.6 10^3/uL (1.4-6.5); Hemoglobin 7.5 g/dL (12.0-16.0); Mean Corp Hgb Conc. 36.8 g/dL (33.0-37.0); Mean Corpuscular Hgb 31.5 pg (27.0-31.0); Mean Corpuscular Volume 85.7 fL (81.0-99.0); Mean Platelet Volume 9.7 fL (7.4-10.4); Nucleated Red Blood Cells % 0.6 %; Platelet Count 260 10^3/uL (130-400); Red Blood Cell Count 2.38 10^6/uL (4.20-5.40); Red Cell Dist. Width 12.2 % (11.5-14.5); White Blood Cell Count 15.7 10^3/uL (4.8-10.8)
[2023-12-01 06:30] LABS: Hematocrit 20.4 % (37.0-47.0)
[2023-12-01] MEDS: STERILE WATER FOR INJECTION 10 ML IV (09:34)
[2023-12-01] MEDS: ROCEPHIN 1000 MG IV (09:34)
[2023-12-01] MEDS: OSCAL CAL 500 500 MG PO (09:36)
[2023-12-01] MEDS: VIBRAMYCIN 100 MG PO ×2 (09:37→20:04)
[2023-12-01] MEDS: LEXAPRO 10 MG PO (09:38)
[2023-12-01] MEDS: FEOSOL 325 MG PO (09:39)
--- NOTE | 2023-12-01 11:16 | W.PN.HOSP.TC ---
Today's Communication/Plan
-
transfuse 1 unit PRBC
For SNF
Assessment / Plan
Assessment / Plan
HPI: 68 y/o female past medical history of hypertension who presented with persistent hypotension following multiple cosmetic surgeries on DOA. Patient reports she recently lost over 100lbs. On DOA, she underwent planned breast lift, abdominoplasty
and bilateral thigh liposuction at the ambulatory surgery center. Following the procedures, she developed persistent hypotension despite 5L of NSS given at the surgery center. She was transferred from the surgery center to the emergency department.
While in the emergency department she received an addition 1L of LR.
A/P:
# Hypovolemic Shock, likely due to fluid shift/anesthesia S/E, following Bilateral Breast Lift, Abdominoplasty, and Bilateral Thigh Liposuction with 4L of adipose tissue removed
# lactic acidosis POA , resolved
Off Levophed
Off IVF, BP stable
blood Cx negative
# Acute Blood Loss Anemia, suspect component of dilution following large amount of IVFs resuscitation
Hgb 7.5 today from 10.1 on admission
Transfuse 1 unit PRBC
Monitor Hgb
# Hypocalcemia, likely related to large amount of IVFs given, resolved
Replaced with IV calcium
Cont PROFESSIONAL ENGINEER PO calcium carbonate
Ca level 8.7 today
# Left lung opacity
CXR noted Focal parenchymal opacity within the left lower lung, suspicious for pneumonia, although atelectasis could have a similar appearance.
Procal elevated at 0.54
MRSA screen neg
Cont empiric Ceftriaxone/doxycycline x5 days
# Essential Hypertension
PROFESSIONAL ENGINEER Diovan on hold
# Hyperlipidemia
Continue Lipitor
# Depression
Continue Lexapro
DVT proph: SCDS
Code Status: Full Code
PT OT now recc SNF
Anticipated Discharge: Within 24 hours
Subjective/Interval History
-
Date of Service: December 01, 2023
Objective Data
-
Labs:
Laboratory Results
12/01/23
05:37
WBC 15.7 H
Hgb 7.5 L
Hct 20.4 L*
Plt Count 260
Sodium 133 L
Potassium 3.8
Chloride 107
Carbon Dioxide 22
BUN 15
Creatinine 0.6
Glucose 98
Calcium 8.7
Vital Signs:
Vital Signs
Temp Pulse Resp BP Pulse Ox
36.8 C 87 18 103/52 93
12/01/23 07:31 12/01/23 07:31 12/01/23 07:31 12/01/23 07:31 12/01/23 10:05
I&O
11/30/23 12/01/23 12/02/23
06:59 06:59 06:59
Intake Total 1180 / 1180
Output Total 810 / 810 595 / 595
Balance -810 / -810 585 / 585
Review of Systems
-
All other systems: Reviewed and negative
Respiratory: Denies Cough or Trouble Breathing
Physical Exam
-
General: Well Developed, Well Nourished, No Apparent Distress, Comfortable and Conversant; Negative Respiratory Distress
HEENT: Normocephalic, Atraumatic, Nose Appears Normal and Ears Appear Normal; Negative Oxygen
Respiratory: Clear to Auscultation and Non Labored Respirations; Negative Accessory Resp Muscle Use
Cardiac: Regular Rhythm and S1/S2
GI: Soft, Nontender, Nondistended and Normal Bowel Sounds
Skin: Warm and Dry
Neuro: Awake, Alert, Oriented and AO x 3
Psych: Calm and Intact Judgement/Insight
Data Reviewed
-
Diagnostic Radiology: Image personally visualized and interpreted
Labs: Labs Reviewed by me
[2023-12-01] MEDS: LIPITOR 10 MG PO (16:22)
--- NOTE | 2023-12-01 16:24 | PTCARENOTE ---
pt received 1 u PRBC. no issues with transfusion. IV 18g on LAC did infiltrate toward end of infusion. switched to 20 g on RH. Placed left arm on pillow and warm towel.
--- NOTE | 2023-12-01 16:40 | CM ---
Patient accepted at [facility] in [place] patient will need auth prior to discharge to facility if patient accepts.
Plan; pending physician confirmation and patient acceptance. will need insurance auth
[2023-12-01] MEDS: COLACE 100 MG PO (22:17)
[2023-12-01] MEDS: MYLICON 80 MG PO (23:20)
[2023-12-02 07:15] VITALS: BP 120/58
[2023-12-02 07:24] LABS: % Basophils 0.3 % (0-2); % Eosinophils 3.7 % (0-6); % Immature Granulocytes 4.2 % (0-0.5); % Monocytes 11.9 % (1.7-9.3); % Neutrophils 60.9 % (42.2-75.2); Absolute Basophils 0.1 10^3/uL (0-0.2); Absolute Eosinophils 0.6 10^3/uL (0-0.7); Absolute Immature Granulocytes 0.6 10^3/uL (0-0.05); Absolute Lymphocytes 2.8 10^3/uL (1.2-3.4); Absolute Monocytes 1.8 10^3/uL (0.1-0.6); Absolute Neutrophils 8.9 10^3/uL (1.4-6.5); Hematocrit 24.4 % (37.0-47.0); Hemoglobin 8.7 g/dL (12.0-16.0); Mean Corp Hgb Conc. 35.7 g/dL (33.0-37.0); Mean Corpuscular Hgb 31.2 pg (27.0-31.0); Mean Corpuscular Volume 87.5 fL (81.0-99.0); Mean Platelet Volume 9.3 fL (7.4-10.4); Platelet Count 247 10^3/uL (130-400); Red Blood Cell Count 2.79 10^6/uL (4.20-5.40); Red Cell Dist. Width 12.6 % (11.5-14.5); White Blood Cell Count 14.7 10^3/uL (4.8-10.8)
[2023-12-02] MEDS: VIBRAMYCIN 100 MG PO ×2 (07:49→19:41)
[2023-12-02] MEDS: FEOSOL 325 MG PO (07:49)
[2023-12-02] MEDS: LEXAPRO 10 MG PO (07:49)
[2023-12-02] MEDS: OSCAL CAL 500 500 MG PO (07:49)
[2023-12-02] MEDS: ROCEPHIN 1000 MG IV (07:50)
[2023-12-02] MEDS: STERILE WATER FOR INJECTION 10 ML IV (07:50)
[2023-12-02] MEDS: TYLENOL 650 MG PO (07:54)
[2023-12-02 07:59] LABS: Blood Urea Nitrogen 15 mg/dl (7-17); Calcium 8.4 mg/dl (8.4-10.2); Carbon Dioxide 24 mmol/L (22-30); Chloride 106 mmol/L (98-107); Estimated Creatinine Clearance 83 ml/min; Glucose 85 mg/dl (70-99); Potassium 3.6 mmol/L (3.5-5.1); Sodium 134 mmol/L (135-145); eGFR > 60.00
--- NOTE | 2023-12-02 08:27 | W.PN.HOSP.TC ---
Addendum entered and electronically signed by Shaw Anguiano MD 12/02/23 23:50:
Attending Addendum-
I saw and evaluated the patient. I reviewed the resident�s note and agree with findings and plan as documented in the resident�s note. Sub: complains of dysphagia to solids and liquids. pain better controlled. Full 12 point ROS reviewed and negative
except as documented Exam: Vitals reviewed in chart GEN-NAD heart RRR lung clear abd binder in place b/l LASHA drains in place LE 1+ edema b/l
A/P
# Hypovolemic Shock
- following Bilateral Breast Lift, Abdominoplasty, and Bilateral Thigh Liposuction with 4L of adipose tissue removed
- resolved
- Off Levophed
- Off IVF, BP stable
- blood Cx negative
# Acute Blood Loss Anemia
- Hgb 8.7 today from 7.5
- s/p Transfuse 1 unit PRBC 11/30
- Monitor Hgb daily
# Dysphagia-
- appreciate speech input
- start Protonix for reflux like symptoms
- c/s GI for eval prior to DC
# Hypocalcemia
- resolved
- Ca level 8.4 today
- repeat in am
# Left lung PNA
-Procal elevated at 0.54
-Cont Ceftriaxone/doxycycline day 09/07
# Leukocytosis
- resolving
- repeat cbc in am
# Hyponatremia-
- mild / resolving
- repeat BMP in am
# Essential Hypertension
-COMMODITY DIRECTOR Diovan on hold
# Hyperlipidemia
-Continue Lipitor
# Depression
-Continue Lexapro
DVT proph: SCDS
Code Status: Full Code
PT OT now rec home with HC NOT SNF (rec 7-)
Dispo DC in am to home
Time spent coordinating care, review of plan of care with resident, personally reviewed records in EMR, med rec, consults, notes, labs, radiology, d/w nursing � 55 mins
Original Note:
Today's Communication/Plan
-
speech eval
continue abx
fu with surgeon after discharge
GI consult
Assessment / Plan
Assessment / Plan
68 year old female past medical history of hypertension who presented with persistent hypotension following multiple cosmetic surgeries on DOA. Patient reports she recently lost over 100lbs. On DOA, she underwent planned breast lift, abdominoplasty
and bilateral thigh liposuction at the ambulatory surgery center. Following the procedures, she developed persistent hypotension despite 5L of NSS given at the surgery center. She was transferred from the surgery center to the emergency department.
While in the emergency department she received an addition 1L of LR.
# Hypovolemic Shock, likely due to fluid shift/anesthesia S/E, following Bilateral Breast Lift, Abdominoplasty, and Bilateral Thigh Liposuction with 4L of adipose tissue removed
- continue monitor with periodic vitals and labs- stable at this time
- Abdominal dressing changed by wound care today
# lactic acidosis POA , resolved
Off Levophed
Off IVF, BP stable
blood Cx negative
# Acute Blood Loss Anemia, suspect component of dilution following large amount of IVFs resuscitation
Hgb 8.7 today from 10.1 on admission
improved from 7.5 on 12/01/23 after 1 unit PRBC
continue to monitor Hgb
# Hypocalcemia, likely related to large amount of IVFs given, resolved
Replaced with IV calcium
calcium level 8.4 today
stop naldo carbonate
monitor electrolytes
# Dysphagia
- Start protonix
- incentive spirometer
- speech eval and recs appreciated
- Gi consult
# Left lung opacity
CXR noted Focal parenchymal opacity within the left lower lung, suspicious for pneumonia, although atelectasis could have a similar appearance.
Procal elevated at 0.54
MRSA screen neg
Cont empiric Ceftriaxone day# 09/07
# Essential Hypertension
COMMODITY DIRECTOR Diovan on hold
# Hyperlipidemia
Continue Lipitor
# Depression
Continue Lexapro
DVT proph: SCDS
Code Status: Full Code
PT OT now recc SNF
Anticipated Discharge: 24 - 48 hours
Subjective/Interval History
-
Date of Service: December 02, 2023
Objective Data
-
Labs:
Laboratory Results
12/02/23
06:56
WBC 14.7 H
Hgb 8.7 L
Hct 24.4 L
Plt Count 247
Sodium 134 L
Potassium 3.6
Chloride 106
Carbon Dioxide 24
BUN 15
Creatinine 0.6
Glucose 85
Calcium 8.4
Vital Signs:
Vital Signs
Temp Pulse Resp BP Pulse Ox
97.8 F 70 18 120/58 100
12/02/23 07:15 12/02/23 07:15 12/02/23 07:15 12/02/23 07:15 12/02/23 08:01
I&O
12/01/23 12/02/23 12/03/23
06:59 06:59 06:59
Intake Total 1180 / 1180 1970 / 1970
Output Total 595 / 595 530 / 530
Balance 585 / 585 1440 / 1440
Review of Systems
-
History Source: Patient
Respiratory: Denies Cough or Trouble Breathing
Cardiac: Reports No Symptoms
Abdomen/GI: Reports Other (Dysphagia); Denies Abdominal Pain or Vomiting
Physical Exam
-
General: Well Developed, Well Nourished and No Apparent Distress; Negative Respiratory Distress
HEENT: Normocephalic and Atraumatic
Respiratory: Clear to Auscultation
Cardiac: Regular Rhythm and S1/S2
GI: Normal Bowel Sounds
Skin: Warm and Dry
Neuro: Awake, Alert, Oriented and AO x 3
Psych: Calm
Data Reviewed
-
Labs: Labs Reviewed by me and Discussed with Patient
[2023-12-02 09:19] VITALS: BP 95/70; PULSE 98; O2SAT 97
--- NOTE | 2023-12-02 12:34 | WOUNDNOTE ---
[employer]
--- NOTE | 2023-12-02 12:35 | WOUNDNOTE ---
WON RN NOTE: Patient admitted 11/27/23 with hypovolemic shock s/p plastic surgery on breasts, facelift, tummy tuck and liposuction. PMH: HTN, Glibert's disease-elevated LFT's, cataracts, 100lb weight loss. Asked to see patient for post op dressing
change care. Spoke to Plastic surgeon Dr. Ye who gave me orders for wound care. Dr. Cabrera wanted only abdominal dressings/LASHA dressings changed with gauze and Tegaderm, Abdominal binder to secure. Can change kal wraps thigh to below knee, with
loose ABD pads underneath near knees. Breast dressing and compression wrap to remain in place. Patient to follow up with plastic surgeon upon discharge. Today was supposed to be 1st post op check per patient. All suture sites remain closed and
clean, b/l LASHA sites for serosanguineous drainage. Bruising in some places legs and abdomen. Sacrum with what appears to be sutures covered with gauze and Tegaderm, otherwise intact. Heels are intact, wedge pillow in use under knees. Patient able to
stand at side of bed for application of kal wraps. Discussed the above with hospitalist residents at bedside. Made residents aware that Dr. Ye requesting hospitalist to call with an update. All dressings to remain in place until follows up
with Plastic surgeon. Nursing can change L LASHA drainage sponges daily and as needed prn drainage. L side drainage in LASHA greater than R, nurse aware. Will update orders, care plan and follow up as needed.
[2023-12-02 15:15] VITALS: BP 137/82
--- NOTE | 2023-12-02 15:38 | CM ---
Reviewed the chart notes and spoke with the patient at the bedside. Patient interested in VN at discharge. Will need order. Referral sent via [facility].
[2023-12-02 17:05] VITALS: BMI 31.9
[2023-12-02] MEDS: PROTONIX 40 MG PO (17:08)
[2023-12-02] MEDS: LIPITOR 10 MG PO (17:08)
[2023-12-02] MEDS: ROXICODONE 5 MG PO ×2 (17:11→23:43)
[2023-12-02 23:05] VITALS: BP 98/66
[2023-12-03 06:21] LABS: % Basophils 0.4 % (0-2); % Eosinophils 3.3 % (0-6); % Immature Granulocytes 6.3 % (0-0.5); % Lymphocytes 17.7 % (20.5-51.1); % Monocytes 10.9 % (1.7-9.3); % Neutrophils 61.4 % (42.2-75.2); Absolute Basophils 0.1 10^3/uL (0-0.2); Absolute Eosinophils 0.5 10^3/uL (0-0.7); Absolute Lymphocytes 2.9 10^3/uL (1.2-3.4); Absolute Monocytes 1.8 10^3/uL (0.1-0.6); Hematocrit 23.8 % (37.0-47.0); Hemoglobin 8.4 g/dL (12.0-16.0); Mean Corp Hgb Conc. 35.3 g/dL (33.0-37.0); Mean Corpuscular Hgb 31.3 pg (27.0-31.0); Mean Corpuscular Volume 88.8 fL (81.0-99.0); Mean Platelet Volume 9.1 fL (7.4-10.4); Platelet Count 259 10^3/uL (130-400); Red Blood Cell Count 2.68 10^6/uL (4.20-5.40); Red Cell Dist. Width 13.2 % (11.5-14.5); White Blood Cell Count 16.3 10^3/uL (4.8-10.8)
[2023-12-03 07:09] LABS: ALT (SGPT) 19 U/L (0-35); AST (SGOT) 24 U/L (14-36); Albumin 2.5 g/dl (3.5-5.0); Alkaline Phosphatase 73 U/L (38-126); Blood Urea Nitrogen 16 mg/dl (7-17); Calcium 8.2 mg/dl (8.4-10.2); Carbon Dioxide 22 mmol/L (22-30); Chloride 105 mmol/L (98-107); Estimated Creatinine Clearance 83 ml/min; Glucose 79 mg/dl (70-99); Potassium 3.7 mmol/L (3.5-5.1); Sodium 134 mmol/L (135-145); Total Bilirubin 3.7 mg/dl (0.2-1.3); Total Protein 4.5 g/dl (6.3-8.2); eGFR > 60.00
[2023-12-03 07:15] VITALS: BP 108/62
--- NOTE | 2023-12-03 07:21 | W.PN.HOSP.TC ---
Addendum entered and electronically signed by Shaw Anguiano MD 12/03/23 23:44:
Attending Addendum-
I saw and evaluated the patient. I reviewed the resident�s note and agree with findings and plan as documented in the resident�s note. Sub: continues to have dysphagia to solids and liquids. pain better controlled. now amenable to SNF and EGD for
eval. Full 12 point ROS reviewed and negative except as documented Exam: Vitals reviewed in chart GEN-NAD heart RRR lung clear abd binder in place b/l LASHA drains in place LE 1+ edema b/l
A/P
# Hypovolemic Shock
- unexpected and not a complication of surgery
- following Bilateral Breast Lift, Abdominoplasty, and Bilateral Thigh Liposuction with 4L of adipose tissue removed
- resolved
- Off Levophed
- blood Cx negative
# Acute Blood Loss Anemia
- Hgb 8.7 today from 7.5
- s/p Transfuse 1 unit PRBC 11/30
- Monitor Hgb daily
# Dysphagia-
- appreciate speech input
- cont Protonix for reflux like symptoms
- GI input apprecaited
- EGD 12/02 - LA Grade D reflux esophagitis with no bleeding.
- Continue PPI BID
- add carafate suspension TID
-repeat EGD in 6-7 weeks to assess for underlying Barrientos's esophagus.
# Hypocalcemia
- resolved
- repeat in am
# Left lung PNA
-Procal elevated at 0.54
-Cont Ceftriaxone/doxycycline day 10/07
# Leukocytosis
- increased
- repeat cbc in am
# Hyponatremia-
- mild
- repeat BMP in am
# Essential Hypertension
-Diovan on hold
# Hyperlipidemia
-Continue Lipitor
# Depression
-Continue Lexapro
DVT proph: SCDS
Code Status: Full Code
Dispo DC to SNF in am
Time spent coordinating care, review of plan of care with resident, personally reviewed records in EMR, med rec, consults, notes, labs, radiology, d/w nursing CM and GI � 57 mins
Original Note:
Today's Communication/Plan
-
continue abx- transition to oral Abx upon discharge
continue Protonix and sucralfate
fu with surgeon after discharge
fu with GI in 6-7 weeks for repeat EGD
Assessment / Plan
Assessment / Plan
68 year old female past medical history of hypertension who presented with persistent hypotension following multiple cosmetic surgeries on DOA. Patient reports she recently lost over 100lbs. On DOA, she underwent planned breast lift, abdominoplasty
and bilateral thigh liposuction at the ambulatory surgery center. Following the procedures, she developed persistent hypotension despite 5L of NSS given at the surgery center. She was transferred from the surgery center to the emergency department.
While in the emergency department she received an addition 1L of LR.
# Hypovolemic Shock likely a potential complication of sugery vs fluid shift following Bilateral Breast Lift, Abdominoplasty, and Bilateral Thigh Liposuction with 4L of adipose tissue removed
- continue monitor with periodic vitals and labs- stable at this time
- Abdominal dressing changed by wound care today
- Off Levophed
- Off IVF, BP stable
- blood Cx negative
# Acute Blood Loss Anemia, suspect component of dilution following large amount of IVFs resuscitation
- Hgb 8.4 today from 10.1 on admission
- s/p 1 unit PRBC 11/30
- continue to monitor Hgb
# Hypocalcemia, likely related to large amount of IVFs given, resolved
- calcium level 8.2 today
- stop naldo carbonate
- monitor electrolytes
# Dysphagia
- continue protonix
- Continue incentive spirometer
- GI consult appreciated
- EGD shows LA Truman D esophagitis( recommend repeat in 6/7 weeks)
- continue sucralfate
# Left lung opacity
CXR noted Focal parenchymal opacity within the left lower lung, suspicious for pneumonia, although atelectasis could have a similar appearance.
MRSA screen neg
Cont empiric Ceftriaxone day# 10/07
# Essential Hypertension
HOUSE DETECTIVE Diovan on hold
# Hyperlipidemia
Continue Lipitor
# Depression
Continue Lexapro
DVT proph: SCDS
Code Status: Full Code
PT OT now recc SNF
Anticipated Discharge: Within 24 hours
Subjective/Interval History
-
Date of Service: December 03, 2023
Objective Data
-
Labs:
Laboratory Results
12/03/23
05:07
WBC 16.3 H
Hgb 8.4 L
Hct 23.8 L
Plt Count 259
Sodium 134 L
Potassium 3.7
Chloride 105
Carbon Dioxide 22
BUN 16
Creatinine 0.5 L
Glucose 79
Calcium 8.2 L
Total Bilirubin 3.7 H
AST 24
ALT 19
Alkaline Phosphatase 73
Vital Signs:
Vital Signs
Temp Pulse Resp BP Pulse Ox
98.7 F 96 14 98/66 96
12/02/23 23:05 12/02/23 23:05 12/02/23 23:05 12/02/23 23:05 12/02/23 23:05
I&O
12/02/23 12/03/23 12/04/23
06:59 06:59 06:59
Intake Total 1970 / 1970 1380 / 1380
Output Total 530 / 530 485 / 485
Balance 1440 / 1440 895 / 895
Review of Systems
-
History Source: Patient
Respiratory: Denies Cough or Trouble Breathing
Cardiac: Denies Chest Pain
Abdomen/GI: Reports GERD
Neuro: Denies No Symptoms
Physical Exam
-
General: Well Developed, Well Nourished and No Apparent Distress
HEENT: Normocephalic and Atraumatic
Respiratory: Clear to Auscultation
Cardiac: Regular Rhythm and S1/S2
GI: Soft and Nontender
Neuro: Awake, Alert, Oriented and AO x 3
Psych: Calm
Data Reviewed
-
Medical Tests (Nuc Med, Echo etc): Report Reviewed by me
Labs: Labs Reviewed by me, Discussed with Physician and Discussed with Patient
--- NOTE | 2023-12-03 07:34 | W.DCSUMMARY ---
Addendum entered and electronically signed by Shaw Anguiano MD 12/05/23 18:02:
Read Reviewed and Agree,
Keith Anguiano MD
Original Note:
Documented by User: Ayo Do MD, Resident 12/05/23 17:47
Discharge Summary
Discharge Data
Date of Admission: 11/27/23
Date of Discharge: 12/05/23
-
Pending Results: No
Hospital Course
Discharging Physician : Ayo Do MD ; Shaw Anguiano MD
Disposition : Home with home health
Primary care physician : Femi Monson
Principal Discharge diagnosis : Hypovolemic shock-unexpected and possibly a complication of her surgery
Chronic Discharge diagnosis : Essential hypertension, hyperlipidemia, depression, GERD/Barrientos's
Hospital Course : 68-year-old female with a past medical history of hypertension presented to the [facility] ED with hypovolemic shock after she underwent planned breast lift, abdominoplasty and bilateral thigh liposuction at the ambulatory surgery
center. During her stay at the [facility] she received Levophed and IV fluids which helped reversing the hypovolemic shock. CXR noted focal parenchymal opacity within the left lower lung, suspicious for pneumonia and she completed course
of empiric ceftriaxone doxycycline. During her stay she she complained of difficulty swallowing semi solids and liquids. Gastroenterology was consulted and an EGD procedure was recommended which showed LA grade D Esophagitis and no bleeding was
found. She was given Protonix and sucralfate to help with her GERD and difficulty swallowing. She has been cleared by PT for discharge to home with home health.
Important imaging findings : Focal parenchymal opacity within the left lower lung, suspicious for pneumonia
Procedure findings : EGD: LA Grade D (one or more mucosal breaks involving at least 75% of esophageal circumference) esophagitis with no bleeding was found. A small hiatal hernia was present.
Discharge Plan
-
Patient Disposition: Home with Home Care
Discharge Diagnosis/Procedures: Hypovolemic shock, community-acquired pneumonia, hypokalemia, acute blood loss anemia, dysphagia, hyponatremia, essential hypertension,Hyperlipidemia, depression
Condition: Good
Diet: As tolerated
Activity: As tolerated
Driving Restrictions: As prior to admission
Other Services: VN
Activity Restrictions/Additional Instructions:
Wound Care Instructions
abdominal dressings with gauze and Tegaderm. LASHA sites with drainage sponges and Tegaderm. Abdominal binder to secure. Changed on 12/02/23 by wound care nurse per Dr. Ye phone([phone])
breast dressing and compression wrap to remain in place.
Bryant wraps with loose ABD pads underneath, thigh high to just below knee. Keep on unless gets bunched up can re apply- not tight.
Follow up with plastic surgeon as scheduled.
Referrals:
Femi Monson [Other] - in less than 1 week
Pineda Ye, DO [Non-Admitting Privileges] - in less than 1 week
Additional Discharge Medication Instructions: Take pantoprazole 40 mg tablet twice daily by mouth
Sucralfate 1 cup 3 times a day by mouth
Prescriptions:
New
pantoprazole 40 mg Tablet,Delayed Release (Dr/Ec)
40 mg PO BID Qty: 60 0RF
sucralfate 100 mg/mL Suspension
1 g PO TID Qty: 300 0RF
Continued
atorvastatin [Lipitor] 10 mg Tablet
10 mg PO QPM
calcium carbonate 500 mg calcium (1,250 mg) Tablet
500 mg PO DAILY
ferrous sulfate 325 mg (65 mg iron) Tablet
325 mg PO DAILY
escitalopram oxalate [Lexapro] 10 mg Tablet
10 mg PO DAILY
coenzyme Q10 [Co Q-10] 100 mg Capsule
100 mg PO DAILY
resveratrol 50 mg Capsule
50 mg PO DAILY
biotin 1 mg Capsule
1 mg PO DAILY
Wegovy 2.4 mg/0.75 mL Pen Injector
2.4 mg SC TREJO
valsartan 80 mg tablet
40 mg PO Q48H
Discharge Orders:
Discharge Patient (As Directed); Ordered 12/05/23
Ordered By: Ayo Do
Discharge Date and Time
Print Language: NAURUAN

Documented by User: Shaw Anguiano MD 12/05/23 17:57
Discharge Summary
Discharge Data
Date of Admission: 11/27/23
Date of Discharge: 12/05/23
Discharge Plan
-
Patient Disposition: Home with Home Care
Discharge Diagnosis/Procedures: Hypovolemic shock, community-acquired pneumonia, hypokalemia, acute blood loss anemia, dysphagia, hyponatremia, essential hypertension,Hyperlipidemia, depression
Condition: Good
Diet: As tolerated
Activity: As tolerated
Driving Restrictions: As prior to admission
Other Services: VN
Activity Restrictions/Additional Instructions:
Wound Care Instructions
abdominal dressings with gauze and Tegaderm. LASHA sites with drainage sponges and Tegaderm. Abdominal binder to secure. Changed on 12/02/23 by wound care nurse per Dr. Ye phone([phone])
breast dressing and compression wrap to remain in place.
Bryant wraps with loose ABD pads underneath, thigh high to just below knee. Keep on unless gets bunched up can re apply- not tight.
Follow up with plastic surgeon as scheduled.
Referrals:
Femi Monson [Other] - in less than 1 week
Pineda Ye, DO [Non-Admitting Privileges] - in less than 1 week
Additional Discharge Medication Instructions: Take pantoprazole 40 mg tablet twice daily by mouth
Sucralfate 1 cup 3 times a day by mouth
Prescriptions:
New
pantoprazole 40 mg Tablet,Delayed Release (Dr/Ec)
40 mg PO BID Qty: 60 0RF
sucralfate 100 mg/mL Suspension
1 g PO TID Qty: 300 0RF
Continued
atorvastatin [Lipitor] 10 mg Tablet
10 mg PO QPM
calcium carbonate 500 mg calcium (1,250 mg) Tablet
500 mg PO DAILY
ferrous sulfate 325 mg (65 mg iron) Tablet
325 mg PO DAILY
escitalopram oxalate [Lexapro] 10 mg Tablet
10 mg PO DAILY
coenzyme Q10 [Co Q-10] 100 mg Capsule
100 mg PO DAILY
resveratrol 50 mg Capsule
50 mg PO DAILY
biotin 1 mg Capsule
1 mg PO DAILY
Wegovy 2.4 mg/0.75 mL Pen Injector
2.4 mg SC TREJO
valsartan 80 mg tablet
40 mg PO Q48H
Discharge Orders:
Discharge Patient (As Directed); Ordered 12/05/23
Ordered By: Ayo Do
Discharge Date and Time
Print Language: NAURUAN
--- NOTE | 2023-12-03 08:49 | CON.GI ---
Addendum entered and electronically signed by Anthony De Los Santos MD 12/03/23 09:55:
Patient seen and examined, agree with nurse practitioner. Patient is a 68-year-old female who presents after elective surgery with hypotension, then noted to have dysphagia and odynophagia. Prior to hospitalization she had no significant GI
symptoms, though since her hospitalization initially started off with some mild dysphagia, then has had significant odynophagia, even with small amounts of liquids. Most likely etiology is pill esophagitis, possibly superimposed reflux esophagitis,
much less likely infectious esophagitis. Given the significance of her symptoms we will plan EGD today to help differentiate, will continue PPI, likely add Carafate suspension pending endoscopy.
Original Note:
Consultation
-
Date/Time Consultation Requested: 12/02/231853
Date/Time Consultation Performed: 12/03/23 0830
Requesting Provider: Dr. Do
Performing Provider: Dr. De Los Santos/RAQUEL Zazueta
Reason for Consultation: odynphagia/dysphagia
Medical History
Chief Complaint / HPI
Chief Complaint: hypotension
History of Present Illness:
68-year-old female with past medical history of hypertension, hyperlipidemia, depression, Gilbert's, colon polyps who recently lost over 100 pounds on Wegovy and underwent elective outpatient breast lift, abdominoplasty and bilateral inner and outer
thigh liposuction on 11/27/23 who developed persistent hypotension despite 5 L of normal saline given at the time of surgery. She was transferred from the surgical center to the emergency department. She received additional 1 L of lactated
Ringer's. She was temporarily on pressor support but weaned off quickly. The patient had a leukocytosis. There was possible left lower lobe atelectasis versus pneumonia and the patient was started on ceftriaxone and doxycycline currently she is
on day 4 of 7. The patient complains of dysphagia and odynophagia. We are asked to evaluate for the same. The patient states that the day or 2 after admission she started noticing she had some pain with swallowing. She did notice that she felt
as if pills will get stuck in the mid portion of her chest. She does have a breast binder on as well as an abdominal binder. She states eventually she would have the sensation of the pill passing. She was then started on some soft food such as
peanut butter and jelly sandwiches. She ate this last night and she had the sensation of this in the midportion of her chest eventually the sensation would pass. She does have odynophagia to liquids. The patient states she never had an issue
prior to this admission. She denies any fevers, chills, nausea, vomiting, melena, hematochezia, early satiety or unintentional weight loss. She has never had an upper endoscopy before. She has no prior history of gastroesophageal reflux disease.
She is up-to-date on her colonoscopies and her routine GI is [facility] gastroenterology. The patient had small amount of water this morning with odynophagia.
Past Medical History
Past Medical History: HTN, Hypercholesterolemia and Other (Depression,Gilbert's)
Past Surgical History: Other (Bilateral breast lift, abdominoplasty, bilateral inner and outer thigh liposuction, facelift, upper eye lift)
Social History
Tobacco: Non-Smoker
Alcohol: Occasional
Drug: None
Family History
Family History: Other (No family history of gastrointestinal malignancy or IBD)
Allergies / Home Medications
Allergy/AdvReac Type Severity Reaction Status Date / Time
No Known Allergies Allergy Verified 11/27/23 18:09
�Medication �Instructions �Recorded
atorvastatin 10 mg tablet (Lipitor) 10 mg PO QPM High Cholesterol 11/27/23
biotin 1 mg capsule 1 mg PO DAILY Supplement 11/27/23
calcium carbonate 500 mg PO DAILY Supplement 11/27/23
coenzyme Q10 100 mg capsule (Co 100 mg PO DAILY Supplement 11/27/23
Q-10)
escitalopram oxalate 10 mg tablet 10 mg PO DAILY Mental 11/27/23
(Lexapro) Health/Anxiety
ferrous sulfate 325 mg (65 mg 325 mg PO DAILY Supplement 11/27/23
iron) tablet
resveratrol 50 mg capsule 50 mg PO DAILY Supplement 11/27/23
semaglutide (weight loss) 2.4 2.4 mg SC TREJO Diabetes 11/27/23
mg/0.75 mL subcutaneous pen
injector (Wegovy)
valsartan 80 mg tablet 40 mg PO Q48H Blood Pressure 11/27/23
Review of Systems
-
All other systems: A 12 pt ROS was Negative except as stated above in HPI
Vital Signs
Temp Pulse Resp BP Pulse Ox
98.5 F 86 18 108/62 95
12/03/23 07:15 12/03/23 07:15 12/03/23 07:15 12/03/23 07:15 12/03/23 07:15
Physical Exam
Exam
General: No Apparent Distress
Respiratory: Clear (Anterior)
Cardiac: Regular Rhythm
Breast: Other (Breast wrapped in Bryant wrap)
GI: Soft, Non Distended, Normal Bowel Sounds and Other (Abdominal binder in place, lifted up to evaluate the abdomen. LASHA drain in place with serosanguineous fluid, mild postop tenderness)
Musculoskeletal: Edema (+1 lower extremity edema)
Skin: Warm and Dry
Neuro: AO x 3
Psych: Calm
Results
WBC 16.3 10^3/uL (4.8-10.8) H 12/03/23 05:07
Hgb 8.4 g/dL (12.0-16.0) L 12/03/23 05:07
Hct 23.8 % (37.0-47.0) L 12/03/23 05:07
MCV 88.8 fL (81.0-99.0) 12/03/23 05:07
Plt Count 259 10^3/uL (130-400) 12/03/23 05:07
Absolute Neuts (auto) 10.0 10^3/uL (1.4-6.5) H 12/03/23 05:07
PT 17.4 Sec (11.4-14.6) H 11/27/23 20:12
INR 1.42 11/27/23 20:12
APTT 24.8 Sec (23.4-35.0) 11/27/23 20:12
Sodium 134 mmol/L (135-145) L 12/03/23 05:07
Potassium 3.7 mmol/L (3.5-5.1) 12/03/23 05:07
Chloride 105 mmol/L (98-107) 12/03/23 05:07
Carbon Dioxide 22 mmol/L (22-30) 12/03/23 05:07
BUN 16 mg/dl (7-17) 12/03/23 05:07
Creatinine 0.5 mg/dL (0.6-1.0) L 12/03/23 05:07
Calcium 8.2 mg/dl (8.4-10.2) L 12/03/23 05:07
Total Bilirubin 3.7 mg/dl (0.2-1.3) H 12/03/23 05:07
AST 24 U/L (14-36) 12/03/23 05:07
ALT 19 U/L (0-35) 12/03/23 05:07
Alkaline Phosphatase 73 U/L (38-126) 12/03/23 05:07
Diagnostic Image Results:
Chest ultrasound 11/28/2023:
IMPRESSION: No sonographic evidence for left pleural effusion.
Chest x-ray 11/27/2023:
IMPRESSION:
Focal parenchymal opacity within the left lower lung, suspicious for pneumonia, although atelectasis could have a similar appearance.
Thin linear densities within the right lower lung, appearance most suggestive of linear atelectasis or scarring.
Prior GI Procedures:
EGD: Never had
Colonoscopy: Patient states just about 5 years ago. States she is just about due. History of colon polyps. GI [facility] gastroenterology.
Assessment / Plan
-
68-year-old female with past medical history of hypertension, hyperlipidemia, depression, Gilbert's, colon polyps who recently lost over 100 pounds on Wegovy and underwent elective outpatient breast lift, abdominoplasty and bilateral inner and outer
thigh liposuction on 11/27/23 who developed persistent hypotension despite 5 L of normal saline given at the time of surgery. She was transferred from the surgical center to the emergency department. She received additional 1 L of lactated
Ringer's. She was temporarily on pressor support but weaned off quickly. The patient had a leukocytosis. There was possible left lower lobe atelectasis versus pneumonia and the patient was started on ceftriaxone and doxycycline currently she is
on day 4 of 7. The patient complains of dysphagia and odynophagia. We are asked to evaluate for the same. Patient labs WBC 16.3, hemoglobin 8.4, hematocrit 23.8, platelets 259, INR 1.42, sodium 134, potassium 3.7, chloride 105, CO2 22, BUN 16,
creatinine 0.5, glucose 79, bilirubin 3.7 (Gilbert's), AST 24, ALT 19, alk phos 73, albumin 2.5.
Impression:
Dysphagia/odynophagia
-> new onset likely pill induced esophagitis currently patient is on doxycycline
Plan:
-Keep n.p.o.
-EGD planned for today
-Continue PPI
-Further recommendations to be forthcoming
Data Reviewed
-
Radiology: Report Reviewed by me
-
-
Thank you for consultation and allowing me to participate in the patient's care. Please call the national sales director GI physician during the after hours with any questions or concerns.
[2023-12-03] MEDS: ROCEPHIN 1000 MG IV (09:05)
[2023-12-03] MEDS: STERILE WATER FOR INJECTION 10 ML IV (09:06)
[2023-12-03] MEDS: LEXAPRO PO (10:10)
[2023-12-03] MEDS: PROTONIX PO (10:10)
[2023-12-03] MEDS: FEOSOL PO (10:10)
[2023-12-03] MEDS: VIBRAMYCIN PO (10:11)
--- NOTE | 2023-12-03 13:35 | PN.CDI ---
CDI
- -
CDI:
Physician Documentation Request
Admit Date: 11/27/23 21:40
Dear Doctor Ernestina,
Patient admitted for hypovolemic shock.
12/01 Hospitalist PN: 'Hypovolemic Shock - following Bilateral Breast Lift, Abdominoplasty, and Bilateral Thigh Liposuction with 4L of adipose tissue removed'
Please clarify the following:
Hypovolemic Shock is a complication of the surgery
Hypovolemic Shock is unexpected but is NOT a complication of the surgery
Hypovolemic Shock is an expected occurrence and is not a complication of surgery
Hypovolemic Shock is inherent to/unavoidable during the surgery and is not a complication
Other
Use of terms such as suspected, likely, concern for, or probable (associated with a specific diagnosis that is being evaluated, monitored, or treated as if it exists) are acceptable and can be coded in the inpatient setting, when documented at the
time of discharge.
Thank you,
Talisha Carlisle RN, BSN
CDI Specialist
Available via [place] text
Please use your independent medical judgment in providing your response.
[2023-12-03 13:41] VITALS: BP 118/70
[2023-12-03 15:10] VITALS: BP 123/67
--- NOTE | 2023-12-03 15:38 | CM ---
Reviewed the chart notes and spoke with the patient at the bedside. CM unable to secure VN in [place] for the patient at this time. Patient now interested in SNF. Referrals sent. CM continues to be available to patient/family and is monitoring
medical plan for needs at discharge.
Plan: Discharge to hopefully SNF once bed found. Precert will be required.
[2023-12-03] MEDS: CARAFATE SUSPENSION 1 GM PO ×2 (17:08→21:02)
[2023-12-03] MEDS: LIPITOR 10 MG PO (17:08)
[2023-12-03] MEDS: PROTONIX 40 MG PO (21:02)
[2023-12-03] MEDS: VIBRAMYCIN 100 MG PO (21:02)
[2023-12-03] MEDS: ROXICODONE 5 MG PO (21:16)
[2023-12-03 23:58] VITALS: BP 100/72
[2023-12-04 05:29] LABS: % Basophils 0.3 % (0-2); % Eosinophils 4.2 % (0-6); % Immature Granulocytes 6.5 % (0-0.5); % Lymphocytes 20.2 % (20.5-51.1); % Monocytes 12.1 % (1.7-9.3); % Neutrophils 56.7 % (42.2-75.2); Absolute Eosinophils 0.5 10^3/uL (0-0.7); Absolute Immature Granulocytes 0.8 10^3/uL (0-0.05); Absolute Lymphocytes 2.5 10^3/uL (1.2-3.4); Absolute Monocytes 1.5 10^3/uL (0.1-0.6); Hematocrit 23.4 % (37.0-47.0); Hemoglobin 8.4 g/dL (12.0-16.0); Mean Corp Hgb Conc. 35.9 g/dL (33.0-37.0); Mean Corpuscular Hgb 31.3 pg (27.0-31.0); Mean Corpuscular Volume 87.3 fL (81.0-99.0); Mean Platelet Volume 8.8 fL (7.4-10.4); Platelet Count 264 10^3/uL (130-400); Red Blood Cell Count 2.68 10^6/uL (4.20-5.40); Red Cell Dist. Width 14.8 % (11.5-14.5); White Blood Cell Count 12.4 10^3/uL (4.8-10.8)
[2023-12-04 05:55] LABS: Blood Urea Nitrogen 17 mg/dl (7-17); Calcium 8.1 mg/dl (8.4-10.2); Carbon Dioxide 25 mmol/L (22-30); Chloride 105 mmol/L (98-107); Estimated Creatinine Clearance 83 ml/min; Glucose 86 mg/dl (70-99); Potassium 3.7 mmol/L (3.5-5.1); Sodium 134 mmol/L (135-145); eGFR > 60.00
--- NOTE | 2023-12-04 06:30 | W.PN.GI.CBS2 ---
Today's Communication / Plan
-
Please see assessment and plan for details.
Assessment / Plan
-
1. Dysphagia/odynophagia: With severe ulcerative esophagitis, though no other signs of significant mid esophagus pill esophagitis or infectious esophagitis, overall improved. At this point we will continue PPI twice daily and Carafate. We
discussed dietary modifications. Will plan repeat endoscopy as an outpatient in 6 to 8 weeks to assess healing and rule out underlying Barrientos's esophagus.
We will sign off for now, please go back with any further questions.
Subjective
Subjective
Date of Service: December 04, 2023
Patient feeling better overall, tolerated diet without much difficulty, still some odynophagia though improved.
Objective
Data Reviewed
Laboratory Data:
Laboratory Results
12/04/23 04:58
12/04/23 04:58
Laboratory Results
PT 17.4 Sec (11.4-14.6) H 11/27/23 20:12
INR 1.42 11/27/23 20:12
APTT 24.8 Sec (23.4-35.0) 11/27/23 20:12
Magnesium 2.2 mg/dl (1.6-2.3) 11/29/23 05:03
Total Bilirubin 3.7 mg/dl (0.2-1.3) H 12/03/23 05:07
AST 24 U/L (14-36) 12/03/23 05:07
ALT 19 U/L (0-35) 12/03/23 05:07
Alkaline Phosphatase 73 U/L (38-126) 12/03/23 05:07
Vital Signs and I&O:
Vital Signs
Temp Pulse Resp BP Pulse Ox
98.3 F 90 16 100/72 96
12/03/23 23:58 12/03/23 23:58 12/03/23 23:58 12/03/23 23:58 12/03/23 23:58
I&O
12/02/23 12/03/23 12/04/23
06:59 06:59 06:59
Intake Total 1969 / 1969 1380 / 1380 840 / 840
Output Total 530 / 530 485 / 485 335 / 335
Balance 1440 / 1440 895 / 895 505 / 505
Physical Exam
Physical Exam
General: NAD
Abdomen: normal bowel sounds, soft, no tenderness, no masses or bruits, no ascites, binder in place
[2023-12-04 07:30] VITALS: BP 100/56
[2023-12-04] MEDS: PROTONIX 40 MG PO ×2 (08:29→19:56)
[2023-12-04] MEDS: CARAFATE SUSPENSION 1 GM PO ×3 (08:29→21:42)
[2023-12-04] MEDS: FEOSOL 325 MG PO (08:29)
[2023-12-04] MEDS: LEXAPRO 10 MG PO (08:29)
[2023-12-04] MEDS: ROCEPHIN 1000 MG IV (08:29)
[2023-12-04] MEDS: STERILE WATER FOR INJECTION 10 ML IV (08:30)
--- NOTE | 2023-12-04 08:55 | W.PN.HOSP.TC ---
Addendum entered and electronically signed by Shaw Anguiano MD 12/05/23 00:25:
Attending Addendum-
I saw and evaluated the patient. I reviewed the resident�s note and agree with findings and plan as documented in the resident�s note. Sub: dysphagia improved. pain better controlled. Full 12 point ROS reviewed and negative except as documented
Exam: Vitals reviewed in chart GEN-NAD heart RRR lung clear abd binder in place b/l LASHA drains in place LE 1+ edema b/l
A/P
# Hypovolemic Shock
- unexpected and possibly a complication of surgery
- following Bilateral Breast Lift, Abdominoplasty, and Bilateral Thigh Liposuction with 4L of adipose tissue removed
- resolved
- Off Levophed
- blood Cx negative
# Acute Blood Loss Anemia
- Hgb 8.4
- s/p Transfuse 1 unit PRBC 11/30
- Monitor Hgb daily
# Dysphagia-
- appreciate speech input
- GI input appreciated
- EGD 12/02 - [place] Grade D reflux esophagitis with no bleeding.
- Continue PPI BID
- cont carafate suspension TID
-repeat EGD in 6-7 weeks to assess for underlying Barrientos's esophagus.
# Hypocalcemia
- resolved
- repeat in am
# Left lung PNA
-Procal elevated at 0.54
-Cont Ceftriaxone/doxycycline day 11/07
# Leukocytosis
- resolving
- repeat cbc in am
# Hyponatremia-
-resolved
- repeat BMP in am
# Essential Hypertension
- Diovan on hold restart on DC
# Hyperlipidemia
- contLipitor
# Depression
-Continue Lexapro
DVT proph: SCDS
Code Status: Full Code
Dispo NOW PT states ok for home with HC- DC in am
Time spent coordinating care, review of plan of care with resident, personally reviewed records in EMR, med rec, consults, notes, labs, radiology, d/w nursing CM at great length� 52 mins
Original Note:
Today's Communication/Plan
-
- DC to Home with home health
- Fu with GI in 6-8 weeks
- Continue protonix and sucralfate
Assessment / Plan
Assessment / Plan
68 year old female past medical history of hypertension who presented with persistent hypotension following multiple cosmetic surgeries on DOA. Patient reports she recently lost over 100lbs. On DOA, she underwent planned breast lift, abdominoplasty
and bilateral thigh liposuction at the ambulatory surgery center. Following the procedures, she developed persistent hypotension despite 5L of NSS given at the surgery center. She was transferred from the surgery center to the emergency department.
While in the emergency department she received an addition 1L of LR.
# Hypovolemic Shock likely a potential complication of sugery vs fluid shift following Bilateral Breast Lift, Abdominoplasty, and Bilateral Thigh Liposuction with 4L of adipose tissue removed
- Stable at this time
- Off Levophed
- Off IVF, BP stable
- blood Cx negative
# Acute Blood Loss Anemia, suspect component of dilution following large amount of IVFs resuscitation
- Hgb 8.4 today from 10.1 on admission
- s/p 1 unit PRBC 11/30
- continue to monitor Hgb
# Hypocalcemia, likely related to large amount of IVFs given, resolved
- calcium level 8.1 today
- stop naldo carbonate
- monitor electrolytes
# Dysphagia
- improving
- continue protonix
- Continue incentive spirometer
- GI consult appreciated
- EGD 12/02 shows [place] Truman D esophagitis( recommend repeat in 6/7 weeks)
- continue sucralfate
- dietary modification
# Left lung opacity
- CXR noted Focal parenchymal opacity within the left lower lung, suspicious for pneumonia, although atelectasis could have a similar appearance.
- MRSA screen negative
- Cont empiric Ceftriaxone day# 11/07
# Essential Hypertension
JOURNALISM TEACHER Diovan on hold
# Hyperlipidemia
Continue Lipitor
# Depression
Continue Lexapro
DVT proph: SCDS
Code Status: Full Code
PT OT recc home health
Anticipated Discharge: Within 24 hours
Subjective/Interval History
-
Date of Service: December 04, 2023
Objective Data
-
Labs:
Laboratory Results
12/04/23
04:58
WBC 12.4 H
Hgb 8.4 L
Hct 23.4 L
Plt Count 264
Sodium 134 L
Potassium 3.7
Chloride 105
Carbon Dioxide 25
BUN 17
Creatinine 0.6
Glucose 86
Calcium 8.1 L
Vital Signs:
Vital Signs
Temp Pulse Resp BP Pulse Ox
98.7 F 85 17 100/56 96
12/04/23 07:30 12/04/23 07:30 12/04/23 07:30 12/04/23 07:30 12/04/23 07:30
I&O
12/03/23 12/04/23 12/05/23
06:59 06:59 06:59
Intake Total 1380 / 1380 840 / 840
Output Total 485 / 485 335 / 335
Balance 895 / 895 505 / 505
Review of Systems
-
History Source: Patient
Constitutional: Reports No Symptoms
Respiratory: Denies Cough or Trouble Breathing
Cardiac: Denies Chest Pain or Palpitations
Abdomen/GI: Denies Abdominal Pain
Genitourinary: Reports No Symptoms
Musculoskeletal: Denies Joint Pain
Neuro: Denies Headache
Physical Exam
-
General: Well Developed, Well Nourished and No Apparent Distress
HEENT: Normocephalic and Atraumatic
Respiratory: Clear to Auscultation
Cardiac: Regular Rhythm and S1/S2
Psych: Calm
Data Reviewed
-
Labs: Labs Reviewed by me, Discussed with Physician and Discussed with Patient
[2023-12-04 09:40] VITALS: BP 111/72; PULSE 90; O2SAT 95
--- NOTE | 2023-12-04 13:22 | CM ---
Addendum entered by Valerie Ramírez RN 12/04/23 13:37:
PT recommending home health. Referrals sent to VNs in the [place] area. Have not been able to secure a VN service at this time. Patient continues with LASHA drains.
Original Note:
Reviewed the chart notes. Calls and messages left for admissions departments which indicated interested in [facility] [place]. Call and message left for [facility], they stated willing to accept in [facility] [place]. Precert will be
required.
[2023-12-04] MEDS: TYLENOL 650 MG PO (14:01)
[2023-12-04 14:42] VITALS: BP 105/67; PULSE 105; O2SAT 100
[2023-12-04 15:15] VITALS: BP 100/62
[2023-12-04] MEDS: LIPITOR 10 MG PO (18:13)
[2023-12-04] MEDS: ROXICODONE 5 MG PO (21:57)
[2023-12-04 23:09] VITALS: BP 115/67
[2023-12-05 05:21] LABS: % Basophils 0.4 % (0-2); % Eosinophils 4.9 % (0-6); % Lymphocytes 22.8 % (20.5-51.1); % Neutrophils 54.9 % (42.2-75.2); Absolute Eosinophils 0.5 10^3/uL (0-0.7); Absolute Immature Granulocytes 0.5 10^3/uL (0-0.05); Absolute Lymphocytes 2.4 10^3/uL (1.2-3.4); Absolute Monocytes 1.3 10^3/uL (0.1-0.6); Absolute Neutrophils 5.8 10^3/uL (1.4-6.5); Hematocrit 24.7 % (37.0-47.0); Hemoglobin 8.5 g/dL (12.0-16.0); Mean Corp Hgb Conc. 34.4 g/dL (33.0-37.0); Mean Corpuscular Hgb 31.5 pg (27.0-31.0); Mean Corpuscular Volume 91.5 fL (81.0-99.0); Mean Platelet Volume 8.7 fL (7.4-10.4); Nucleated Red Blood Cells % 0.6 %; Platelet Count 296 10^3/uL (130-400); Red Cell Dist. Width 15.6 % (11.5-14.5); White Blood Cell Count 10.5 10^3/uL (4.8-10.8)
[2023-12-05 07:08] VITALS: BP 101/60
[2023-12-05] MEDS: PROTONIX 40 MG PO ×2 (07:57→19:58)
[2023-12-05] MEDS: LEXAPRO 10 MG PO (07:57)
[2023-12-05] MEDS: CARAFATE SUSPENSION 1 GM PO ×3 (07:57→21:38)
[2023-12-05] MEDS: FEOSOL 325 MG PO (07:57)
[2023-12-05] MEDS: STERILE WATER FOR INJECTION IV (07:57)
--- NOTE | 2023-12-05 13:48 | CM ---
Chart reviewed. Still no accepting VN in [place]. will continue attempts to arrange VN services.
--- NOTE | 2023-12-05 14:10 | W.PN.HOSP.TC ---
Addendum entered and electronically signed by Shaw Anguiano MD 12/06/23 15:33:
patient not discharged due to awaiting placement.
Keith Anguiano
Addendum entered and electronically signed by Shaw Anguiano MD 12/05/23 18:00:
Attending Addendum-
I saw and evaluated the patient. I reviewed the resident�s note and agree with findings and plan as documented in the resident�s note. Sub: no complaints ready to go home. Denies dysphagia Full 12 point ROS reviewed and negative except as documented
Exam: Vitals reviewed in chart GEN-NAD heart RRR lung clear abd binder in place b/l LASHA drains in place LE 1+ edema b/l
A/P
# Hypovolemic Shock
- unexpected and possibly a complication of surgery
- following Bilateral Breast Lift, Abdominoplasty, and Bilateral Thigh Liposuction with 4L of adipose tissue removed
- resolved
- Off Levophed
- blood Cx negative
- LASHA drain x [address]- changed today- f/u as OP f/u VN
# Acute Blood Loss Anemia
- Hgb 8.5
- s/p Transfuse 1 unit PRBC 11/30
- Monitor Hgb as OP
# Dysphagia-
- appreciate speech input
- GI input appreciated
- EGD 12/02 - [place] Grade D reflux esophagitis with no bleeding.
- Continue PPI BID
- cont carafate suspension TID
-repeat EGD in 6-7 weeks to assess for underlying Barrientos's esophagus. DC home
# Hypocalcemia
- resolved
- repeat in am
# Left lung PNA
-Procal elevated at 0.54
-Cont Ceftriaxone/doxycycline day 12/07- completed course
# Leukocytosis
- resolved
- repeat cbc as OP prn
# Hyponatremia-
-resolved
# Essential Hypertension
- Diovan on hold restart on DC
# Hyperlipidemia
- cont Lipitor
# Depression
-Continue Lexapro
DVT proph: SCDS
Code Status: Full Code
Dispo DC home today, VN to be set up
Time spent coordinating care, review of plan of care with resident, personally reviewed records in EMR, transition of care, dc planning, med rec, consults, notes, labs, radiology, d/w nursing CM at great length� 35 mins
Original Note:
Today's Communication/Plan
-
- DC to home with Home health
- continue Protonix and carafate
- follow up with PCP and surgeon within 1 week
- repeat EGD in 6-7 weeks to assess for underlying Barrientos's esophagus.
Assessment / Plan
Assessment / Plan
68 year old female past medical history of hypertension who presented with persistent hypotension following multiple cosmetic surgeries on DOA. Patient reports she recently lost over 100lbs. On DOA, she underwent planned breast lift, abdominoplasty
and bilateral thigh liposuction at the ambulatory surgery center. Following the procedures, she developed persistent hypotension despite 5L of NSS given at the surgery center. She was transferred from the surgery center to the emergency department.
While in the emergency department she received an addition 1L of LR.
# Hypovolemic Shock likely a potential complication of sugery vs fluid shift following Bilateral Breast Lift, Abdominoplasty, and Bilateral Thigh Liposuction with 4L of adipose tissue removed
- Stable at this time
- Off Levophed
- Off IVF, BP stable
- blood Cx negative
# Acute Blood Loss Anemia, suspect component of dilution following large amount of IVFs resuscitation
- Hgb 8.5 today from 10.1 on admission
- s/p 1 unit PRBC 11/30
# Hypocalcemia, likely related to large amount of IVFs given, resolved
- calcium level 8.1 today
- stop naldo carbonate
- monitor electrolytes
# Dysphagia
- improving
- continue protonix BID
- EGD 12/02 shows [place] Truman D esophagitis( recommend repeat in 6/7 weeks)
- continue sucralfate
- dietary modification recommended
# Left lung opacity
- CXR noted Focal parenchymal opacity within the left lower lung, suspicious for pneumonia, although atelectasis could have a similar appearance.
- MRSA screen negative
- Completed empiric Ceftriaxone course
# Essential Hypertension
COMPOSITE TECHNICIAN Diovan on hold
# Hyperlipidemia
Continue Lipitor
# Depression
Continue Lexapro
DVT proph: SCDS
Code Status: Full Code
PT OT recc home health
Anticipated Discharge: Today
Subjective/Interval History
-
Date of Service: December 05, 2023
Objective Data
-
Labs:
Laboratory Results
12/05/23
04:38
WBC 10.5
Hgb 8.5 L
Hct 24.7 L
Plt Count 296
Vital Signs:
Vital Signs
Temp Pulse Resp BP Pulse Ox
98.4 F 88 16 101/60 94
12/05/23 07:08 12/05/23 07:08 12/05/23 07:08 12/05/23 07:08 12/05/23 07:08
I&O
12/04/23 12/05/23 12/06/23
06:59 06:59 06:59
Intake Total 840 / 840 1200 / 1200 480 / 480
Output Total 335 / 335 215 / 215 40 / 40
Balance 505 / 505 985 / 985 440 / 440
Review of Systems
-
History Source: Patient
Respiratory: Reports No Symptoms
Cardiac: Reports No Symptoms
Abdomen/GI: Reports No Symptoms
Musculoskeletal: Denies Joint Pain
Neuro: Denies Headache
Endocrine: Denies Polyuria
Physical Exam
-
General: Well Developed and Well Nourished
HEENT: Normocephalic and Atraumatic
Respiratory: Clear to Auscultation
Cardiac: Regular Rhythm
GI: Soft
Psych: Calm
Data Reviewed
-
Labs: Labs Reviewed by me, Discussed with Physician and Discussed with Patient
[2023-12-05 15:36] VITALS: BP 108/70
[2023-12-05] MEDS: LIPITOR 10 MG PO (17:47)
[2023-12-05] MEDS: TYLENOL 650 MG PO (19:59)
[2023-12-05 23:04] VITALS: BP 112/65
[2023-12-06 07:15] VITALS: BP 102/54
[2023-12-06] MEDS: FEOSOL 325 MG PO (08:46)
[2023-12-06] MEDS: LEXAPRO 10 MG PO (08:46)
[2023-12-06] MEDS: CARAFATE SUSPENSION 1 GM PO (08:46)
[2023-12-06] MEDS: PROTONIX 40 MG PO (08:46)
--- NOTE | 2023-12-06 13:47 | CM ---
bus company manager reviewed patient's chart and met with patient and nursing to review discharge plan. Plan was for patient to return to home with visiting nurses however multiply referrals sent out to visiting nurse agencies and none of the agencies have
accepted patient, agencies include [facility], [facility], [facility], [facility], [facility], [facility], [facility], [facility], [facility], and [facility] all
denied patient either due to patient location or staffing.
Plan now is to home with a follow up visit with surgical team on Saturday12/09/23 in office at 10 am, hospitalist made aware.
Plan; Home today and follow up at surgery office.
--- NOTE | 2023-12-06 14:06 | W.PN.HOSP.TC ---
Addendum entered and electronically signed by Shaw Anguiano MD 12/06/23 15:37:
Attending Addendum-
I saw and evaluated the patient. I reviewed the resident�s note and agree with findings and plan as documented in the resident�s note. Sub: pain well controlled, wants to go home. no new complaints. Denies dysphagia Full 12 point ROS reviewed and
negative except as documented Exam: Vitals reviewed in chart GEN-NAD heart RRR lung clear abd binder in place b/l LASHA drains in place LE 1+ edema b/l
A/P
# Hypovolemic Shock
- unexpected and possibly a complication of surgery
- following Bilateral Breast Lift, Abdominoplasty, and Bilateral Thigh Liposuction with 4L of adipose tissue removed
- resolved
- Off Levophed
- blood Cx negative
- LASHA drain x [address]- emptied today today- f/u on 12/08- appt set.
# Acute Blood Loss Anemia
- Hgb 8.5
- s/p Transfuse 1 unit PRBC 11/30
- Monitor Hgb as OP
# Dysphagia-
- appreciate speech input
- GI input appreciated
- EGD 12/02 - LA Grade D reflux esophagitis with no bleeding.
- Continue PPI BID
- cont carafate suspension TID
-repeat EGD in 6-7 weeks to assess for underlying Barrientos's esophagus. DC home
# Hypocalcemia
- resolved
- repeat in am
# Left lung PNA
-Procal elevated at 0.54
-Cont Ceftriaxone/doxycycline day 12/07- completed course
# Leukocytosis
- resolved
- repeat cbc as OP prn
# Hyponatremia-
-resolved
# Essential Hypertension
- Diovan on hold restart on DC
# Hyperlipidemia
- cont Lipitor
# Depression
-Continue Lexapro
DVT proph: SCDS
Code Status: Full Code
Dispo DC home today, cancelled by CM on 12/04, VN to be set up surgical follow up set up 12/08.
Time spent coordinating care, review of plan of care with resident, personally reviewed records in EMR, transition of care, dc planning, med rec, consults, notes, labs, radiology, d/w nursing CM at great length� 36 mins
Original Note:
Today's Communication/Plan
-
- DC to home.
- continue Protonix and carafate
- follow up with PCP and surgeon within 1 week
- repeat EGD in 6-7 weeks to assess for underlying Barrientos's esophagus.
Assessment / Plan
Assessment / Plan
68 year old female past medical history of hypertension who presented with persistent hypotension following multiple cosmetic surgeries on DOA. Patient reports she recently lost over 100lbs. On DOA, she underwent planned breast lift, abdominoplasty
and bilateral thigh liposuction at the ambulatory surgery center. Following the procedures, she developed persistent hypotension despite 5L of NSS given at the surgery center. She was transferred from the surgery center to the emergency department.
While in the emergency department she received an addition 1L of LR.
# Hypovolemic Shock likely a potential complication of sugery vs fluid shift following Bilateral Breast Lift, Abdominoplasty, and Bilateral Thigh Liposuction with 4L of adipose tissue removed
- Stable at this time
- Off Levophed
- Off IVF, BP stable
- blood Cx negative
- patient to fu with surgeon for post op checks
# Acute Blood Loss Anemia, suspect component of dilution following large amount of IVFs resuscitation
- Hgb 8.5 per last report
- s/p 1 unit PRBC 11/30
# Hypocalcemia, likely related to large amount of IVFs given, resolved
- calcium level 8.1 12/05/23
- stop naldo carbonate
# Dysphagia
- improving
- continue protonix BID
- EGD 12/02 shows LA Truman D esophagitis( recommend repeat in 6/7 weeks)
- continue sucralfate
- dietary modification recommended
# Left lung opacity
- CXR noted Focal parenchymal opacity within the left lower lung, suspicious for pneumonia, although atelectasis could have a similar appearance.
- MRSA screen negative
- Completed empiric Ceftriaxone course
# Essential Hypertension
CHIEF NURSE Diovan on hold
# Hyperlipidemia
Continue Lipitor
# Depression
Continue Lexapro
DVT proph: SCDS
Code Status: Full Code
PT OT recc home health
Anticipated Discharge: Today
Subjective/Interval History
-
Date of Service: December 06, 2023
Objective Data
-
Vital Signs:
Vital Signs
Temp Pulse Resp BP Pulse Ox
97.8 F 89 17 102/54 95
12/06/23 07:15 12/06/23 07:15 12/06/23 07:15 12/06/23 07:15 12/06/23 07:15
I&O
12/05/23 12/06/23 12/07/23
06:59 06:59 06:59
Intake Total 1200 / 1200 2320 / 2320
Output Total 215 / 215 120 / 120
Balance 985 / 985 2200 / 2200
Review of Systems
-
History Source: Patient
All other systems: Reviewed and negative
Constitutional: Reports No Symptoms
Physical Exam
-
General: Well Developed and Well Nourished
HEENT: Normocephalic and Atraumatic
Respiratory: Clear to Auscultation
Cardiac: Regular Rhythm and S1/S2
GI: Soft, Nontender and Nondistended
Psych: Calm
--- NOTE | 2023-12-06 14:29 | W.DCSUMMARY ---
Addendum entered and electronically signed by Shaw Anguiano MD 12/06/23 15:37:
Read reviewed and agree
Keith Anguiano MD
Original Note:
Documented by User: Ayo Do MD, Resident 12/06/23 14:49
Discharge Summary
Discharge Data
Date of Admission: 11/27/23
Date of Discharge: 12/06/23
-
Pending Results: No
Hospital Course
Discharging Physician : Ayo Do MD ; Shaw Samaniego MD
Disposition : Home
Primary care physician : Femi Monson
Principal Discharge diagnosis : Hypovolemic shock-unexpected and possibly a complication of her surgery
Chronic Discharge diagnosis : Hypertension, hyperlipidemia, depression, GERD/Barrientos's
Hospital Course : 68-year-old female with past medical history of hypertension and hyperlipidemia presented to the [facility] with persistent hypotension/hypovolemic shock following multiple cosmetic surgeries on date of arrival. Surgeries
included breast left abdominoplasty and bilateral thigh liposuction at the ambulatory surgery center. He was admitted to the ICU initially but eventually moved to general medicine floor and received IV fluids and received 1 unit packed RBCs on 11/30
and IV fluids which helped maintaining/stabilizing blood pressure. Chest x-ray also showed focal parenchymal opacity within the left lower lung, suspicion of pneumonia. She was started on empiric ceftriaxone/doxycycline course which she eventually
completed. She also developed some dysphagia especially with semisolids and liquids GI was consulted and she was started on Protonix. Per GI recommendations she received EGD which showed grade D and no bleeding was found she was given Protonix and
sucralfate to help with the GERD and difficulty swallowing, she she has been cleared by physical therapy for discharge to home with home health. However a visiting nurse could not be arranged with [id number] and insurance plan, she
did schedule an appointment with the surgeon coming Saturday and follow-up with the surgeon for further evaluation/treatment
Important imaging findings : Focal parenchymal opacity within the left lower lung, suspicious for pneumonia
Procedure findings : EGD: LA Grade D (one or more mucosal breaks involving at least 75% of esophageal circumference) esophagitis with no bleeding was found. A small hiatal hernia was present.
Discharge Plan
-
Patient Disposition: Home (Routine Discharge)
Discharge Diagnosis/Procedures: Hypovolemic shock, community-acquired pneumonia, hypokalemia, acute blood loss anemia, dysphagia, hyponatremia, essential hypertension,Hyperlipidemia, depression
Condition: Good
Diet: As tolerated
Activity: As tolerated
Driving Restrictions: As prior to admission
Wound Care: Patient to fu with surgeon- Appt already set up
Activity Restrictions/Additional Instructions:
Wound Care Instructions
abdominal dressings with gauze and Tegaderm. LASHA sites with drainage sponges and Tegaderm. Abdominal binder to secure. Changed on 12/02/23 by wound care nurse per Dr. Ye phone([phone])
breast dressing and compression wrap to remain in place.
Bryant wraps with loose ABD pads underneath, thigh high to just below knee. Keep on unless gets bunched up can re apply- not tight.
Follow up with plastic surgeon as scheduled.
Referrals:
Femi Monson [Other] - in less than 1 week
Pineda Ye, DO [Non-Admitting Privileges] - in less than 1 week
Additional Discharge Medication Instructions: Take pantoprazole 40 mg tablet twice daily by mouth
Sucralfate 1 cup 3 times a day by mouth
Prescriptions:
New
pantoprazole 40 mg Tablet,Delayed Release (Dr/Ec)
40 mg PO BID Qty: 60 0RF
sucralfate 100 mg/mL Suspension
1 g PO TID Qty: 300 0RF
Continued
atorvastatin [Lipitor] 10 mg Tablet
10 mg PO QPM
calcium carbonate 500 mg calcium (1,250 mg) Tablet
500 mg PO DAILY
ferrous sulfate 325 mg (65 mg iron) Tablet
325 mg PO DAILY
escitalopram oxalate [Lexapro] 10 mg Tablet
10 mg PO DAILY
coenzyme Q10 [Co Q-10] 100 mg Capsule
100 mg PO DAILY
resveratrol 50 mg Capsule
50 mg PO DAILY
biotin 1 mg Capsule
1 mg PO DAILY
Wegovy 2.4 mg/0.75 mL Pen Injector
2.4 mg SC TREJO
valsartan 80 mg tablet
40 mg PO Q48H
Discharge Orders:
Discharge Patient (As Directed); Ordered 12/06/23
Ordered By: Ayo Do
Discharge Date and Time
Print Language: GREENLANDIC

Documented by User: Shaw Anguiano MD 12/06/23 15:31
Discharge Summary
Discharge Data
Date of Admission: 11/27/23
Date of Discharge: 12/06/23
Discharge Plan
-
Patient Disposition: Home (Routine Discharge)
Discharge Diagnosis/Procedures: Hypovolemic shock, community-acquired pneumonia, hypokalemia, acute blood loss anemia, dysphagia, hyponatremia, essential hypertension,Hyperlipidemia, depression
Condition: Good
Diet: As tolerated
Activity: As tolerated
Driving Restrictions: As prior to admission
Wound Care: Patient to fu with surgeon- Appt already set up
Activity Restrictions/Additional Instructions:
Wound Care Instructions
abdominal dressings with gauze and Tegaderm. LASHA sites with drainage sponges and Tegaderm. Abdominal binder to secure. Changed on 12/02/23 by wound care nurse per Dr. Ye phone([phone])
breast dressing and compression wrap to remain in place.
Bryant wraps with loose ABD pads underneath, thigh high to just below knee. Keep on unless gets bunched up can re apply- not tight.
Follow up with plastic surgeon as scheduled.
Referrals:
Femi Monson [Other] - in less than 1 week
Pineda Ye, [Non-Admitting Privileges] - in less than 1 week
Additional Discharge Medication Instructions: Take pantoprazole 40 mg tablet twice daily by mouth
Sucralfate 1 cup 3 times a day by mouth
Prescriptions:
New
pantoprazole 40 mg Tablet,Delayed Release (Dr/Ec)
40 mg PO BID Qty: 60 0RF
sucralfate 100 mg/mL Suspension
1 g PO TID Qty: 300 0RF
Continued
atorvastatin [Lipitor] 10 mg Tablet
10 mg PO QPM
calcium carbonate 500 mg calcium (1,250 mg) Tablet
500 mg PO DAILY
ferrous sulfate 325 mg (65 mg iron) Tablet
325 mg PO DAILY
escitalopram oxalate [Lexapro] 10 mg Tablet
10 mg PO DAILY
coenzyme Q10 [Co Q-10] 100 mg Capsule
100 mg PO DAILY
resveratrol 50 mg Capsule
50 mg PO DAILY
biotin 1 mg Capsule
1 mg PO DAILY
Wegovy 2.4 mg/0.75 mL Pen Injector
2.4 mg SC TREJO
valsartan 80 mg tablet
40 mg PO Q48H
Discharge Orders:
Discharge Patient (As Directed); Ordered 12/06/23
Ordered By: Ayo Do
Discharge Date and Time
Print Language: GREENLANDIC
[2023-12-06 16:02] VITALS: BP 127/74
--- NOTE | 2023-12-06 16:45 | PTCARENOTE ---
Educated patient on LASHA drain management prior to discharge. Patient demonstrated both emptying and maintaining both LASHA drains with no further questions.
== END 2023-12-06 16:09 | disposition home or self-care (01) | DRG 871 ==
LOC: 2 SOUTH 21:40
PROVIDERS: Internal Medicine; Physician Assistant Medical; ADMITTING PHYSICIAN Student in an Organized Health Care Education/Training Program; ATTENDING PHYSICIAN Family Medicine; CONSULT PHYSICIAN Internal Medicine Gastroenterology; EMERGENCY PHYSICIAN Emergency Medicine; OTHER PHYSICIAN Internal Medicine
PROC: 30233N1 Transfusion of Nonautologous Red Blood Cells into Peripheral Vein, Percutaneous Approach (ICD-10-PCS; 2023-12-01)
PROC: 0DJ08ZZ Inspection of Upper Intestinal Tract, Via Natural or Artificial Opening Endoscopic (ICD-10-PCS; 2023-12-03)
DX: R57.1 Hypovolemic shock (principal); J18.9 Pneumonia, unspecified organism; D62 Acute posthemorrhagic anemia; E87.20 Acidosis, unspecified; J90 Pleural effusion, not elsewhere classified; E87.1 Hypo-osmolality and hyponatremia; I10 Essential (primary) hypertension; E83.51 Hypocalcemia; E78.5 Hyperlipidemia, unspecified; F32.A Depression, unspecified; E80.4 Gilbert syndrome; K21.9 Gastro-esophageal reflux disease without esophagitis
CPT/HCPCS: 51702; 71045; 76604; 80048; 80053; 82248; 82330; 83605; 83615; 83735; 84145; 84155; 84484; 85014; 85018; 85025; 85027; 85610; 85730; 86850; 86900; 86901; 86920; 87040; 87070; 92526; 92610; 93005; 96361; 96365; 96375; 97116; 97163; 97166; 97530; 97535; 99291; P9016